=== PATIENT | male | born 1940 | race Caucasian/White ===

== ENCOUNTER 2017-06-03 15:00 | Outpatient (RCR) | payer MEDICARE, OTHER ==
[~2017-06-03 15:00] MED LIST: AMOX400T12 PO; FERR-57 PO; GLIM2TAB PO; HSCO125 SL; LEVO250T7 PO; LEVO500T69 PO; LOVA20TA2 PO; MAGN100T3 PO; MTF500T PO; OXYB15TA PO; OXYC-188 PO; SENN1TAB76 PO
== END 2017-06-03 16:29 | disposition home or self-care (01) ==
PROVIDERS: ATTEND Orthopaedic Surgery
DX: M75.101 Unspecified rotator cuff tear or rupture of right shoulder, not specified as traumatic (principal)

== ENCOUNTER 2019-06-18 18:22 | Emergency (ER) | payer MEDICARE ==
[~2019-06-18] VITALS: Ht 182 cm; Wt 72.0 kg
--- OUTSIDE RECORDS SUMMARY | 2019-06-18 18:28 | XMS REPORT ---
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 Unspecified Chronic Active no name no inf ormation sense organ hearing loss disorders (2 sources.) Past or Other Problems Problem Normalized Date of Normalized Normalized Provider Fac ility Classification Problem(s) Problem Problem Problem Sta tus Onset/Resoluti Duration on Syncope (2 Syncope and Episodic Completed no name no inform ation sources.) collapse NEGATED Unspecified Episodic Completed LUIS TWISS , Not Christina ilable no rotator cuff MD ([id number]) information tear or (14 sources.) rupture of right shoulder, not specified as traumatic Procedures No Information Immunizations No Information Results No Information Vital Signs No Information Interventions No Information Plan of Treatment No Information Goals No Information Social History No Information Functional Status No Information Mental Status No Information Encounters Encounter Normalized Encounter Encounter Diagnosis Care Provi saw Organization Date Type 06-03-2017 Patient encounter no information no name (no phone) no organization name - (no phone) 06-03-2017 06-01-2017 Patient encounter no information no name (no phone) no organization name (no phone) 05-27-2017 Patient encounter no information no name (no phone) no organization name (no phone) 05-25-2017 Patient encounter no information no name (no phone) no organization name (no phone) 05-19-2017 Patient encounter no information no name (no phone) no organization name (no phone) 05-17-2017 Patient encounter no information no name (no phone) no organization name (no phone) 05-12-2017 Patient encounter no information no name (no phone) no organization name (no phone) 05-10-2017 Patient encounter no information no name (no phone) no organization name (no phone) 05-06-2017 Patient encounter no information no name (no phone) no organization name (no phone) 05-03-2017 Patient encounter no information no name (no phone) no organization name (no phone) 04-30-2017 Patient encounter no information no name (no phone) no organization name (no phone) 07-02-2014 Patient encounter no information no name (no phone) no organization name (no phone) 04-17-2014 Patient encounter no information no name (no phone) no organization name (no phone) 07-18-2013 Patient encounter no information no name (no phone) no organization name (no phone) Medical Equipment No Information Payers No Information Additional Source Comments This clinical document has been generated using [employer] software that has been certified by the Office of the National Coordinator for Health Information Technology (ONC 15.99.04.3023.Diam.[id number]) and the National Committee for Associate Professor Of Musicology (NCQA, as an eMeasure certified technology). FOR RECORDS PERTAINING TO PATIENTS WHO ARE OR HAVE BEEN ENROLLED IN A CHEMICAL D EPENDENCY/SUBSTANCE ABUSE PROGRAM, SOME INFORMATION MAY BE OMITTED. This clinica l summary was aggregated from multiple sources. Caution should be exercised in using it in the provision of clinical care. This summary normalizes information from multiple sources, and as a consequence, information in this document may ma terially change the coding, format and clinical context of patient data. In jose juan tion, data may be omitted in some cases. CLINICAL DECISIONS SHOULD BE BASED ON T HE PRIMARY CLINICAL RECORDS. [employer] provides no warranty or guara ntee of the accuracy or completeness of information in this document.The followi ng information is based on time limited clinical information
--- OUTSIDE RECORDS SUMMARY | 2019-06-18 18:28 | XMS REPORT | Continuity of Care Document ---
Author Organization Unknown Address Unknown Phone Unavailable Allergies Active Description Code Type Severity Reaction Onset Reported/Identified Relationship to Patient Clinical Status Yes No Known Drug Allergies [id number] Drug Allergy Unknown N/A 09/09/2009 Medications There is no data. 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 Results There is no data. Encounters ACCT No. Visit Date/Time Discharge Status Pt. Type Provider Facility Loc./Unit Complaint [id number] 06/03/2017 15:00:00 018 16:29:00 DIS Outpatient LUIS LILLY MD [facility] REHAB R SHOULDER MASSIVE RCT [id number] 07/02/2014 14:06:00 015 23:59:59 CLS Outpatient STEVE MOON DO [facility] CARD EBSTEIN'S ANOMA LY [id number] 04/17/2014 15:59:00 015 23:59:59 CLS Outpatient ÁNGEL MARSH MD [facility] RAD LEFT ASSYMETRCAL HEARIN G LOSS [id number] 07/18/2013 08:38:00 014 23:59:59 CLS Outpatient STEVE MOON DO [facility] CARD SYNCOPE
--- OUTSIDE RECORDS SUMMARY | 2019-06-18 18:28 | XMS REPORT | Clinical Summary ---
Author Author [facility] Organization [facility] Address Unknown Phone Unavailable Care Team Providers Care Metal Gauge Maker Name Role Phone Dio Awan MD PCP Emely Jimenez MD Unavailable Unavailable Source Comments Some departments are not documenting in the electronic medical record. If you d o not see the information that you expected, contact Release of Information in [facility] Check-Cap Information Management department at [phone] for further assistan ce in locating additional records.[facility] Allergies No Known Allergies Medications End Date Status Medication Sig Dispensed Refills Start Date Active metformin (GLUCOPHAGE) Take 2 Tabs 0 500 mg tablet by mouth Twice Daily With Meals. Active MULTIVITAMINS W-MINERALS Take 1 Tab by 0 (MULTIVITAMIN & MINERAL mouth Daily. FORMULA PO) Active ERGOCALCIFEROL (VITAMIN D Take 1 Tab by 0 PO) mouth Daily. Active ASCORBIC ACID (VITAMIN C Take 1 Tab by 0 PO) mouth Daily. Active FLAXSEED OIL PO Take 1 Tab by 0 mouth Daily. Active CALCIUM CARBONATE/VITAMIN Take 1 Tab by 0 D2 (CALCIUM + VITAMIN D mouth Daily. PO) Active DOCUSATE CALCIUM (STOOL Take 1 Tab by 0 SOFTENER PO) mouth Daily. Active lovastatin,+, (MEVACOR) Take 20 mg by 0 20 mg tablet mouth At Bedtime Daily. Active Aspirin 81 mg Tab Take 1 Tab by 0 mouth Daily. 0 Can resume after heredia catheter is removed. Active oxycodone/acetaminophen Take 1-2 Tabs 30 Tab 0 (PERCOCET) 5/325 mg by mouth 0 tablet Every 4 Hours as needed for Pain. Avoid driving while taking this narcotic pain medication Active hyoscyamine (LEVSIN/SL) 1 Tab Every 4 30 Tab 2 0.125 mg tablet Hours as 0 needed for Cramps. bladder spasms Active Sharon-3 Fatty Acids (FISH Take 1 Cap by 0 OIL) Cap mouth. Can 0 resume previous schedule after heredia catheter is removed. Active senna/docusate Take 2 Tabs 30 Tab 0 (SENOKOT-S) 8.6/50 mg by mouth 0 tablet Daily. Active levofloxacin (LEVAQUIN) Take 1 Tab by 15 Tab 0 250 mg tablet mouth Daily. 0 Active polymyxin/bacitracin/danuta/ Apply to 1 Container 1 HC (CORTISPORIN) 1 % affected area 0 topical ointment Three Times Daily. Active oxybutynin XL (DITROPAN Take 1 Tab by 15 Tab 0 XL) 15 mg tablet mouth Daily. 0 Active Problems Problem Noted Date Anemia 09/10/2009 Hyperkalemia 09/03/2009 Prostate cancer 09/03/2009 Social History Date Tobacco Use Types Packs/Day Years Used Quit: 03/08/1961 Former Smoker Cigarettes 1 5 Drinks/Week oz/Week Comments Alcohol Use No Sex Assigned at Date Recorded Not on file Industry Job Start Date Occupation Not on file Not on file Not on file Travel End Travel History Travel Start No recent travel history available. Last Filed Vital Signs Reading Time Taken Comments Vital Sign 109/68 09/05/2009 1:49 PM CDT Blood Pressure 93 09/05/2009 1:49 PM CDT Pulse 36.2 C (97.2 F) 09/05/2009 1:49 PM CDT Temperature - - Respiratory Rate 96% 09/05/2009 1:49 PM CDT Oxygen Saturation - - Inhaled Oxygen Concentration 71.1 kg (156 lb 12 oz) 09/02/2009 11:15 AM CDT Weight 185.4 cm (6' 0.99") 09/02/2009 11:15 AM CDT Height 20.68 09/02/2009 11:15 AM CDT Body Mass Index Plan of Treatment Health Maintenance Due Date Last Done Comments DTAP/TDAP VACCINES (1 - 12/13/1950 Tdap) HEPATITIS C SCREENING 12/13/1957 PHYSICAL (COMPREHENSIVE) 12/13/1957 EXAM SHINGLES RECOMBINANT 12/13/1989 VACCINE (1 of 2) PNEUMONIA (PCV13/PPSV23) 12/13/2004 VACCINES (1 of 2 - PCV13) INFLUENZA VACCINE 10/07/2019 Results Not on filefrom Last 3 Months
--- NOTE | 2019-06-18 18:39 | ED General ---
General Stated Complaint: RECTAL PAIN/BILAT FOOT SWELLING Source of Information: Patient Exam Limitations: No Limitations History of Present Illness Date Seen by Provider: Jun 18, 2019 Time Seen by Provider: 18:37 Initial Comments To ER by private vehicle with reports of rectal pain for the past 3 or 4 days. States he has no external pain but pain seems to be within the rectum. When he sticks his finger up his rectum he can feel some tenderness and pain around the coccyx. He states that he did fall about a week ago landing on his buttocks while out in the garden but had no pain immediately. Unsure if this is related to his current symptoms. History of prostatectomy, no dysuria. No rectal bleeding that he has noticed. Also had some mild bilateral lower extremity swelling. Timing/Duration: 3-4 Days Severity: Moderate Associated Systoms: Denies Symptoms Allergies and Home Medications Allergies Coded Allergies: No Known Drug Allergies (Unverified , 09/09/09) Home Medications Glimepiride 2 Mg Tablet, 2 MG PO DAILY, (Reported) Lovastatin 20 Mg Tablet, 1 EACH PO DAILY WITH SUPPER, (Reported) Metformin Hcl 500 Mg Tablet, 1,000 MG PO BID WITH MEALS, (Reported) Patient Home Medication List Home Medication List Reviewed: Yes Review of Systems Review of Systems Constitutional: see HPI EENTM: see HPI Respiratory: no symptoms reported Cardiovascular: no symptoms reported Gastrointestinal: other (rectal pain) Genitourinary: no symptoms reported Musculoskeletal: no symptoms reported, other (and rectal pain) Skin: no symptoms reported Psychiatric/Neurological: No Symptoms Reported Hematologic/Lymphatic: No Symptoms Reported Past Qvigmbb-Cdohos-Biydst Hx Patient Social History Recent Foreign Travel: No Contact w/Someone Who Travel: No Past Medical History Reproductive Disorders: No Physical Exam Vital Signs Vital Signs - First Documented 06/18/19 18:48 Temp 36.4 Pulse 84 Resp 20 B/P (MAP) 171/86 (114) Pulse Ox 94 Capillary Refill : Height, Weight, BMI Height: '" Weight: lbs. oz. kg; BMI Method: General Appearance: No Apparent Distress, WD/WN Eyes: Bilateral Eye Normal Inspection, Bilateral Eye PERRL, Bilateral Eye EOMI Respiratory: No Accessory Muscle Use, No Respiratory Distress Cardiovascular: Regular Rate, Rhythm, Normal Peripheral Pulses Gastrointestinal: Non Tender, Soft Extremity: Normal Capillary Refill, Normal Inspection, Other (Trace pitting edema bilateral lower extremity) Neurologic/Psychiatric: Alert, Oriented x3 Skin: Normal Color, Warm/Dry Progress/Results/Core Measures Suspected Sepsis SIRS Temperature: Pulse: Respiratory Rate: Laboratory Tests 06/18/19 18:43: White Blood Count 8.5 Blood Pressure / Mean: Laboratory Tests 06/18/19 18:43: Creatinine 1.63H, Platelet Count 270, Total Bilirubin 0.4 Results/Orders Lab Results Laboratory Tests Test 06/18/19 18:43 06/18/19 20:20 Range/Units White Blood Count 8.5 4.3-11.0 10^3/uL Red Blood Count 4.91 4.35-5.85 10^6/uL Hemoglobin 14.1 13.3-17.7 G/DL Hematocrit 43 40-54 % Mean Corpuscular Volume 87 80-99 FL Mean Corpuscular Hemoglobin 29 25-34 PG Mean Corpuscular Hemoglobin Concent 33 32-36 G/DL Red Cell Distribution Width 15.0 H 10.0-14.5 % Platelet Count 270 130-400 10^3/uL Mean Platelet Volume 11.4 H 7.4-10.4 FL Neutrophils (%) (Auto) 67 42-75 % Lymphocytes (%) (Auto) 17 12-44 % Monocytes (%) (Auto) 12 0-12 % Eosinophils (%) (Auto) 4 0-10 % Basophils (%) (Auto) 1 0-10 % Neutrophils # (Auto) 5.6 1.8-7.8 X 10^3 Lymphocytes # (Auto) 1.5 1.0-4.0 X 10^3 Monocytes # (Auto) 1.0 0.0-1.0 X 10^3 Eosinophils # (Auto) 0.3 0.0-0.3 10^3/uL Basophils # (Auto) 0.1 0.0-0.1 10^3/uL Sodium Level 140 135-145 MMOL/L Potassium Level 4.4 3.6-5.0 MMOL/L Chloride Level 105 98-107 MMOL/L Carbon Dioxide Level 19 L 21-32 MMOL/L Anion Gap 16 H 5-14 MMOL/L Blood Urea Nitrogen 26 H 7-18 MG/DL Creatinine 1.63 H 0.60-1.30 MG/DL Estimat Glomerular Filtration Rate 41 BUN/Creatinine Ratio 16 Glucose Level 112 H 70-105 MG/DL Calcium Level 9.2 8.5-10.1 MG/DL Corrected Calcium 8.8 8.5-10.1 MG/DL Total Bilirubin 0.4 0.1-1.0 MG/DL Aspartate Amino Transf (AST/SGOT) 58 H 5-34 U/L Alanine Aminotransferase (ALT/SGPT) 19 0-55 U/L Alkaline Phosphatase 480 H 40-136 U/L Total Protein 7.7 6.4-8.2 GM/DL Albumin 4.5 3.2-4.5 GM/DL Urine Color YELLOW Urine Clarity CLEAR Urine pH 5.5 5-9 Urine Specific [place] 1.025 H 1.016-1.022 Urine Protein 1+ H NEGATIVE Urine Glucose (UA) 3+ H NEGATIVE Urine Ketones NEGATIVE NEGATIVE Urine Nitrite NEGATIVE NEGATIVE Urine Bilirubin NEGATIVE NEGATIVE Urine Urobilinogen 0.2 < = 1.0 MG/DL Urine Leukocyte Esterase NEGATIVE NEGATIVE Urine RBC (Auto) TRACE-L NEGATIVE Urine RBC RARE /HPF Urine WBC NONE /HPF Urine Squamous Epithelial Cells RARE /HPF Urine Crystals NONE /LPF Urine Bacteria NEGATIVE /HPF Urine Casts PRESENT /LPF Urine Granular Casts RARE /LPF Urine Mucus SMALL H /LPF Urine Culture Indicated NO My Orders Orders - REJI LYNN APRN Ct Abdomen/Pelvis Wo (06/18/19 18:35) Cbc With Automated Diff (06/18/19 18:35) Comprehensive Metabolic Panel (06/18/19 18:35) Ua Culture If Indicated (06/18/19 18:35) Tramadol Tablet (Ultram Tablet) (06/18/19 20:15) Medications Given in ED Current Medications Medications Dose Ordered Sig/Yecenia Route Start Time Stop Time Status Last Admin Dose Admin Tramadol HCl 50 mg ONCE ONCE PO 06/18/19 20:15 06/18/19 20:16 DC 06/18/19 20:18 50 MG Vital Signs/I&O 06/18/19 18:48 Temp 36.4 Pulse 84 Resp 20 B/P (MAP) 171/86 (114) Pulse Ox 94 Capillary Refill : Departure Communication (Admissions) NAME: KATIA HODGE [facility] REC#: [id number] PT STATUS: REG ER : 1940 PHYSICIAN: REJI LYNN [employer] ADMIT DATE: 06/18/19/ER Draft Date of Exam:06/18/19 CT ABDOMEN/PELVIS WO CLINICAL INDICATION: Patient complains of rectal pain/spasms yesterday. Patient complains of swelling in both lower extremities. Patient reports falling at home on backwards onto his buttocks. EXAM: Axial CT scan of the abdomen and pelvis performed without IV or enteric contrast. Sagittal and coronal reformatted images were created. Auto Exposure Controls were utilized during the CT exam to meet ALARA standards for radiation dose reduction. COMPARISON: CT scan of the abdomen and pelvis performed without and with IV contrast dated 06/26/2009. FINDINGS: There is minimal bibasilar atelectasis or scarring with small parenchymal bands seen. There is no acute lumbar spine fracture. 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 There is multilevel lumbar spinal degenerative disease. There is no fracture of the sacrum, hips or pelvis. There is interval development of sclerotic lesions involving the T12, L3 vertebra, posterior right iliac crest, anterior right iliac bone/acetabular region. Superior right pubic ramus/symphysis pubis region. S3/S4 sacral region and small patchy areas involving the left proximal femoral intertrochanteric region. Given the multiplicity of these findings, metastatic disease is of concern. There is levoscoliosis of the lumbar spine. There are two indeterminate low-density areas involving the left lobe of the liver near the dome. The largest measures 7 mm. These were not visualized on the prior study. Liver is otherwise unremarkable. The spleen, pancreas and adrenal glands are grossly unremarkable, as visualized. There is mild fat stranding again seen adjacent to both kidneys with no interval acute abnormality. There is no hydronephrosis or renal stone seen. The bladder is partially fluid-filled with diffuse bladder wall thickening which may be related to incomplete distention. There is no intra-abdominal free air or free fluid. There is distention of the stomach with ingested debris noted. There is no intestinal obstruction. There is a moderate amount of stool within the rectal vault which is air distended. There is moderate amount of stool within the transverse colon and descending colon. The appendix is unremarkable, as visualized. There is interval development of a 1.3 cm x 1.6 cm x 2.7 cm (AP x Trans x CC) lymph node in the left para-aortic region near the splenic hilum. This was not seen on the prior study. There is no other significant lymphadenopathy seen. The prostate gland is surgically resected. The extra-abdominal and extra-pelvic soft tissue structures show no significant abnormality. There is no significant change in the mildly prominent left groin lymph nodes. IMPRESSION: 1: There is a moderate amount of stool within the transverse and descending colon. There is no evidence of intestinal obstruction. 2: There is debris in distended stomach from ingested material. 3: There is interval development of sclerotic lesions involving the axial skeleton. Osseous metastatic disease may be considered. Clinical correlation is suggested for further evaluation. Prostate gland is surgically resected. Nonemergent nuclear medicine whole body bone scan would help better evaluate. 4: There is no evidence of acute fracture seen on this exam. 5: There is interval development of a prominent lymph node in the upper left periaortic region of the left renal hilum. 6: There are two nonspecific circumscribed subcentimeter lesions in the left lobe of the liver. Cyst may be considered. If the patient has history of cancer, then metastatic lesions cannot be completely excluded. Nonemergent CT scan of the abdomen and pelvis with contrast would help better evaluate. Dictated on workstation # [id number] Dict: 06/18/191930 Trans: 06/18/191952 [facility] [id number] Interpreted by: ABIMAEL LOW MD Electronically signed by: Impression Primary Impression: Perineal pain in male Additional Impression: sclerotic bony lesions Disposition: 01 HOME, SELF-CARE Condition: Stable Departure-Patient Inst. Decision time for Depature: 19:59 Referrals: STEVE AWAN DO (PCP/Family) Primary Care Physician Patient Instructions: Acute Pelvic Pain (DC) Add. Discharge Instructions: 1. Suspect that hyour pain is from the fall a few days ago and some bruising to the coccyx or tailbone. 2. Follow-up with Dr. Awan this week. Call tomorrow to make an appointment. There are some lesions on some of the bones, specifically on the T12, L3 vertebrae, left proximal femur and a few others. These can represent a metastatic cancer, perhaps from your history of prostate cancer. . Copy Copies To 1: STEVE AWAN PETER J APRN Jun 18, 2019 18:39
[2019-06-18 18:56] LABS: BASOPHILS # (AUTO) 0.1 10^3/uL (0.0-0.1); BASOPHILS % (AUTO) 1 % (0-10); EOSINOPHILS # (AUTO) 0.3 10^3/uL (0.0-0.3); EOSINOPHILS % (AUTO) 4 % (0-10); HEMATOCRIT 43 % (40-54); HEMOGLOBIN 14.1 G/DL (13.3-17.7); LYMPHOCYTES # (AUTO) 1.5 X 10^3 (1.0-4.0); LYMPHOCYTES % (AUTO) 17 % (12-44); MEAN CORPUSCULAR HEMOGLOBIN 29 PG (25-34); MEAN CORPUSCULAR HGB CONC 33 G/DL (32-36); MEAN CORPUSCULAR VOLUME 87 FL (80-99); MEAN PLATELET VOLUME 11.4 FL (7.4-10.4); MONOCYTES % (AUTO) 12 % (0-12); NEUTROPHILS # (AUTO) 5.6 X 10^3 (1.8-7.8); NEUTROPHILS % (AUTO) 67 % (42-75); PLATELET COUNT 270 10^3/uL (130-400); WHITE BLOOD COUNT 8.5 10^3/uL (4.3-11.0)
[2019-06-18 19:04] LABS: ALBUMIN 4.5 GM/DL (3.2-4.5); POTASSIUM 4.4 MMOL/L (3.6-5.0)
[2019-06-18 19:05] LABS: CALCIUM 9.2 MG/DL (8.5-10.1)
[2019-06-18 19:06] LABS: TOTAL PROTEIN 7.7 GM/DL (6.4-8.2)
[2019-06-18 19:08] LABS: BILIRUBIN,TOTAL 0.4 MG/DL (0.1-1.0)
[2019-06-18 19:10] LABS: CREATININE SERUM 1.63 MG/DL (0.60-1.30)
--- NOTE | 2019-06-18 19:54 | Diagnostic Imaging Report ---
CLINICAL INDICATION: Patient complains of rectal pain/spasms yesterday. Patient complains of swelling in both lower extremities. Patient reports falling at home on backwards onto his buttocks. EXAM: Axial CT scan of the abdomen and pelvis performed without IV or enteric contrast. Sagittal and coronal reformatted images were created. Auto Exposure Controls were utilized during the CT exam to meet ALARA standards for radiation dose reduction. COMPARISON: CT scan of the abdomen and pelvis performed without and with IV contrast dated 06/26/2009. FINDINGS: There is minimal bibasilar atelectasis or scarring with small parenchymal bands seen. There is no acute lumbar spine fracture. 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 There is multilevel lumbar spinal degenerative disease. There is no fracture of the sacrum, hips or pelvis. There is interval development of sclerotic lesions involving the T12 vertebra, L3 vertebra, posterior right iliac crest, anterior right iliac bone/acetabular region, superior right pubic ramus/symphysis pubis region, S3/S4 sacral region and small patchy areas involving the left proximal femoral intertrochanteric region. Given the multiplicity of these findings, metastatic disease is of concern. There is levoscoliosis of the lumbar spine. There are two indeterminate low-density areas involving the left lobe of the liver near the dome. The largest measures 7 mm. These were not visualized on the prior study. Liver is otherwise unremarkable. The spleen, pancreas and adrenal glands are grossly unremarkable, as visualized. There is mild fat stranding again seen adjacent to both kidneys with no interval acute abnormality. There is no hydronephrosis or renal stone seen. The bladder is partially fluid-filled with diffuse bladder wall thickening which may be related to incomplete distention. There is no intra-abdominal free air or free fluid. There is distention of the stomach with ingested debris noted. There is no intestinal obstruction. There is a moderate amount of stool within the rectal vault which is air distended. There is moderate amount of stool within the transverse colon and descending colon. The appendix is unremarkable, as visualized. There is interval development of a 1.3 cm x 1.6 cm x 2.7 cm (AP x Trans x CC) lymph node in the left para-aortic region near the splenic hilum. This was not seen on the prior study. There is no other significant lymphadenopathy seen. The prostate gland is surgically resected. The extra-abdominal and extra-pelvic soft tissue structures show no significant abnormality. There is no significant change in the mildly prominent left groin lymph nodes. IMPRESSION: 1: There is a moderate amount of stool within the transverse and descending colon. There is no evidence of intestinal obstruction. 2: There is debris in distended stomach from ingested material. 3: There is interval development of sclerotic lesions involving the axial and appendicular skeleton. Osseous metastatic disease is of concern. Prostate gland is surgically resected. Nonemergent nuclear medicine whole body bone scan would help better evaluate. 4: There is no evidence of acute fracture seen on this exam. 5: There is interval development of a prominent lymph node in the upper left periaortic region of the left renal hilum. 6: There are two nonspecific circumscribed subcentimeter lesions in the left lobe of the liver. Cyst may be considered. If the patient has history of cancer, then metastatic lesions cannot be completely excluded. Nonemergent CT scan of the abdomen and pelvis with contrast would help better evaluate. Dictated by: Dictated on workstation # [id number]
[2019-06-18 20:25] LABS: BILIRUBIN,URINE NEGATIVE (NEGATIVE); CLARITY,URINE CLEAR; COLOR,URINE YELLOW; GLUCOSE, URINE (UA) 3+ (NEGATIVE); KETONES,URINE NEGATIVE (NEGATIVE); LEUKOCYTE ESTERASE ,URINE NEGATIVE (NEGATIVE); NITRITE,URINE NEGATIVE (NEGATIVE); PH,URINE 5.5 (5-9); PROTEIN,URINE 1+ (NEGATIVE)
[2019-06-18 20:34] LABS: RBC,URINE RARE /HPF
[2019-06-18 20:35] LABS: BACTERIA,URINE NEGATIVE /HPF; GRANULAR CASTS,URINE RARE /LPF; SQUAMOUS EPITHELIAL CELL,UR RARE /HPF
[2019-06-18] MEDS ORDERED: RX-TRAMADOL 50 MG (ULTRAM) TAB PPK#4 PO STA (20:54)
[2019-06-18 20:57] VITALS: BP 156/82
== END 2019-06-18 20:59 | disposition home or self-care (01) ==
LOC: EDUNIT# 18:22 → ER 18:24
DX: R10.2 Pelvic and perineal pain (principal); M89.8X9 Other specified disorders of bone, unspecified site; Z79.84 Long term (current) use of oral hypoglycemic drugs
CPT/HCPCS: 36415; 74176; 80053; 81000; 85025

== ENCOUNTER 2019-06-20 18:33 | Emergency (ER) | payer MEDICARE ==
--- OUTSIDE RECORDS SUMMARY | 2019-06-20 18:38 | XMS REPORT | Clinical Summary ---
Author Author [facility] Organization [facility] Address Unknown Phone Unavailable Care Team Providers Care Soccer Ball Assembler Name Role Phone Dio Awan MD PCP Emely Jimenez MD Unavailable Unavailable Source Comments Some departments are not documenting in the electronic medical record. If you d o not see the information that you expected, contact Release of Information in [facility] Management department at [phone] for further assistan ce in locating additional records.[facility] Allergies No Known Allergies Medications End Date [...] 0 needed for Cramps. bladder spasms Active [place]-3 Fatty Acids (FISH Take 1 Cap by [...]
--- OUTSIDE RECORDS SUMMARY | 2019-06-20 18:39 | XMS REPORT ---
Author Author [facility] Address [address] [address] Care Team Providers Care Finance Director Name Role Phone Unavailable Unavailable Allergies No [...] Not Christina ilable no rotator cuff MD ([id number]) information tear or (14 sources.) rupture of [...] This clinical document has been generated using [employer] software that has been certified by the Office of the National Coordinator for Health Information Technology (ONC 15.99.04.3023.[id number]) and the National Committee for Exercise Planner (NCQA, as an eMeasure certified technology). FOR [...] BASED ON T HE PRIMARY CLINICAL RECORDS. [employer]. provides no warranty or guara ntee of the accuracy or completeness of information in this document.The followi ng information is based on time limited clinical information
--- OUTSIDE RECORDS SUMMARY | 2019-06-20 18:39 | XMS REPORT | Continuity of Care Document ---
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 Results Test Result Range Complete blood count (CBC) with automate d white blood cell (WBC) differential - 06/18/19 18:43 Blood leukocytes automated count (number/volume) 8.5 10*3/uL 4.3-11.0 Blood erythrocytes automated count (number/volume) 4.91 10*6/uL 4.35-5.85 Venous blood hemoglobin measurement (mass/volume) 14.1 g/dL 13.3-17.7 Blood hematocrit (volume fraction) 43 % 40-54 Automated erythrocyte mean corpuscular volume 87 [ foz_us] 80-99 Automated erythrocyte mean corpuscular h emoglobin (mass per erythrocyte) 29 pg 25-34 Automated erythrocyte mean corpuscular h emoglobin concentration measurement (mass/volume) 33 g/dL 32-36 Automated erythrocyte distribution width ratio 15. 0 % 10.0- 14.5 Automated blood platelet count (count/volume) 270 10*3/uL 130-400 Automated blood platelet mean volume measurement 11.4 [foz_us] 7.4-10.4 Automated blood neutrophils/100 leukocytes 67 % 42-75 Automated blood lymphocytes/100 leukocytes 17 % 12-44 Blood monocytes/100 leukocytes 12 % 0-12 Automated blood eosinophils/100 leukocytes 4 % 0-10 Automated blood basophils/100 leukocytes 1 % 0-10 Blood neutrophils automated count (number/volume) 5.6 10*3 1.8-7.8 Blood lymphocytes automated count (number/volume) 1.5 10*3 1.0-4.0 Blood monocytes automated count (number/volume) 1. 0 10*3 0.0-1.0 Automated eosinophil count 0.3 10*3/uL 0 .0-0.3 Automated blood basophil count (count/volume) 0.1 10*3/uL 0.0-0.1 Comprehensive metabolic panel - 06/18/19 18:43 Serum or plasma sodium measurement (moles/volume) 140 mmol/L 135-145 Serum or plasma potassium measurement (moles/volume) 4.4 mmol/L 3.6-5.0 Serum or plasma chloride measurement (moles/volume) 105 mmol/L 98-107 Carbon dioxide 19 mmol/L 21-32 Serum or plasma anion gap determination (moles/volume) 16 mmol/L 5-14 Serum or plasma urea nitrogen measurement (mass/volume ) 26 mg/dL 7-18 Serum or plasma creatinine measurement (mass/volume) 1.63 mg/dL 0.60-1.30 Serum or plasma urea nitrogen/creatinine mass ratio 16 NRG Serum or plasma creatinine measurement w ith calculation of estimated glomerular filtration rate 41 NRG Serum or plasma glucose measurement (mass/volume) 112 mg/dL 70-105 Serum or plasma calcium measurement (mass/volume) 9.2 mg/dL 8.5-10.1 Serum or plasma total bilirubin measurement (mass/volu me) 0.4 mg/dL 0.1-1.0 Serum or plasma alkaline phosphatase se surement (enzymatic activity/volume) 480 U/L 40-136 Serum or plasma aspartate aminotransfera se measurement (enzymatic activity/volume) 58 U/L 5-34 Serum or plasma alanine aminotransferase measurement (enzymatic activity/volume) 19 U/L 0-55 Serum or plasma protein measurement (mass/volume) 7.7 g/dL 6.4-8.2 Serum or plasma albumin measurement (mass/volume) 4.5 g/dL 3.2-4.5 CALCIUM CORRECTED 8.8 mg/dL 8.5-10.1 Complete urinalysis with reflex to cultu re - 06/18/19 20:20 Urine color determination YELLOW NRG Urine clarity determination CLEAR NR G Urine pH measurement by test strip 5.5 5-9 Specific gravity of urine by test strip 1.025 1.016-1.022 Urine protein assay by test strip, semi-quantitative 1+ NEGATIVE Urine glucose detection by automated test strip 3+ NEGATIVE Erythrocytes detection in urine sediment by light micr oscopy TRACE-L NEGATIVE Urine ketones detection by automated test strip NE GATIVE NEGATIVE Urine nitrite detection by test strip NEGATIVE NEGATIVE Urine total bilirubin detection by test strip NEGA TIVE NEGATIVE Urine urobilinogen measurement by automated test strip (mass/volume) 0.2 mg/dL < = 1.0 Urine leukocyte esterase detection by dipstick NEG ATIVE NEGATIVE Automated urine sediment erythrocyte cou nt by microscopy (number/high power field) RARE NRG Automated urine sediment leukocyte count by microscopy (number/high power field) NONE NRG Bacteria detection in urine sediment by light microsco py NEGATIVE NRG Squamous epithelial cells detection in u rine sediment by light microscopy RARE NRG Crystals detection in urine sediment by light microsco py NONE NRG Casts detection in urine sediment by light microscopy PRESENT NRG Mucus detection in urine sediment by light microscopy SMALL NRG Complete urinalysis with reflex to culture NO NRG Granular casts detection in urine sediment by light mi croscopy RARE NRG Encounters ACCT No. Visit Date/Time Discharge Status Pt. Type Provider Facility Loc./Unit Complaint [id number] 06/18/2019 18:24:00 020 20:59:00 DIS Emergency REJI LYNN PESTICIDE CHEMIST [facility] ER RECTAL PAIN/BILAT FOOT SWELLING [id number] 06/03/2017 15:00:00 018 16:29:00 DIS Outpatient LUIS LILLY MD [facility] REHAB R SHOULDER MASSIVE RCT [id number] 07/02/2014 14:06:00 015 23:59:59 CLS Outpatient STEVE MOON DO [facility] CARD EBSTEIN'S ANOMA LY [id number] 04/17/2014 15:59:00 015 23:59:59 CLS Outpatient ÁNGEL MARSH MD [facility] RAD LEFT ASSYMETRCAL HEARIN G LOSS [id number] 07/18/2013 08:38:00 014 23:59:59 CLS Outpatient STEVE MOON DO [facility] CARD SYNCOPE [id number] 06/22/2019 11:00:00 P EN Preadmit STEVE MOON DO [facility] CARD CANCER METASTATIC TO BONE
--- NOTE | 2019-06-20 18:57 | ED General ---
General Stated Complaint: L BACK PAIN, UNABLE TO URINATE Source of Information: Patient Exam Limitations: No Limitations History of Present Illness Date Seen by Provider: Jun 20, 2019 Time Seen by Provider: 18:55 Initial Comments To ER with reports of worsening midline low back pain and difficulty urinating. He feels the urge to urinate but only has a small dribbling stream with some hesitancy. He was seen here a few days ago for perineal pain, this began after he fell in the garden and that it was related to a bruised coccyx. We did a CT and didn't find evidence of sclerotic bony lesions. They called primary care who has set up a bone scan for this . He is out of his pain medication and the pain has returned today he states that the Ultram was helpful. Timing/Duration: 1-2 Days Severity: Moderate Allergies and Home Medications Allergies Coded Allergies: No Known Drug Allergies (Unverified , 09/09/09) Home Medications Glimepiride 2 Mg Tablet, 2 MG PO DAILY, (Reported) Lovastatin 20 Mg Tablet, 1 EACH PO DAILY WITH SUPPER, (Reported) Metformin Hcl 500 Mg Tablet, 1,000 MG PO BID WITH MEALS, (Reported) Sulfamethoxazole/Trimethoprim 1 Each Tablet, 1 EACH PO BID Prescribed by: REJI LYNN on 06/20/192030 Tramadol HCl 50 Mg Tablet, 50 MG PO Q6H Prescribed by: REJI LYNN on 06/20/192030 Patient Home Medication List Home Medication List Reviewed: Yes Review of Systems Review of Systems Constitutional: see HPI EENTM: see HPI Respiratory: no symptoms reported Cardiovascular: no symptoms reported Genitourinary: see HPI Musculoskeletal: no symptoms reported Skin: no symptoms reported Psychiatric/Neurological: No Symptoms Reported Hematologic/Lymphatic: No Symptoms Reported Past Dgsxdiv-Jsmzut-Oololq Hx Patient Social History Former Smoker, Quit: Jun 24, 1971 Recent Foreign Travel: No Contact w/Someone Who Travel: No Past Medical History Surgeries: Yes (HERNIA REPAIR, SHOULDER REPAIR) Prostatectomy Respiratory: No Cardiac: Yes High Cholesterol, Hypertension Neurological: Yes Neuropathy Reproductive Disorders: No Sexually Transmitted Disease: No Genitourinary: Yes Gastrointestinal: No Endocrine: Yes Diabetes, Non-Insulin dep Psychosocial: No Blood Disorders: No Physical Exam Vital Signs Capillary Refill : Height, Weight, BMI Height: '" Weight: lbs. oz. kg; 21.00 BMI Method: General Appearance: No Apparent Distress, WD/WN, Thin (very pleasant gentleman) Eyes: Bilateral Eye Normal Inspection, Bilateral Eye PERRL, Bilateral Eye EOMI Neck: Full Range of Motion, Normal Inspection Respiratory: No Accessory Muscle Use Cardiovascular: Regular Rate, Rhythm, Normal Peripheral Pulses Gastrointestinal: Non Tender, Soft Extremity: Normal Capillary Refill, Normal Inspection Neurologic/Psychiatric: Alert, Oriented x3 Skin: Normal Color, Warm/Dry Progress/Results/Core Measures Suspected Sepsis SIRS Temperature: Pulse: Respiratory Rate: Blood Pressure / Mean: Results/Orders Lab Results Laboratory Tests Test 06/20/19 19:30 Range/Units Urine Color YELLOW Urine Clarity CLEAR Urine pH 5.0 5-9 Urine Specific [place] 1.020 1.016-1.022 Urine Protein TRACE H NEGATIVE Urine Glucose (UA) 3+ H NEGATIVE Urine Ketones NEGATIVE NEGATIVE Urine Nitrite NEGATIVE NEGATIVE Urine Bilirubin NEGATIVE NEGATIVE Urine Urobilinogen 0.2 < = 1.0 MG/DL Urine Leukocyte Esterase NEGATIVE NEGATIVE Urine RBC (Auto) TRACE-I NEGATIVE Urine RBC 0-2 /HPF Urine WBC NONE /HPF Urine Crystals PRESENT H /LPF Urine Amorphous Sediment FEW SUNNY URATES H /LPF Urine Bacteria TRACE /HPF Urine Casts NONE /LPF Urine Mucus NEGATIVE /LPF Urine Culture Indicated NO My Orders Orders - REJI LYNN APRN Tramadol Tablet (Ultram Tablet) (06/20/19 19:00) Bladder Scan (06/20/19 18:53) Ua Culture If Indicated (06/20/19 18:53) Bladder Scan (06/20/19 19:03) Urine Culture (06/20/19 20:19) Rx-Tramadol Hcl (Rx-Ultram) (06/20/19 20:25) Medications Given in ED Current Medications Medications Dose Ordered Sig/Yecenia Route Start Time Stop Time Status Last Admin Dose Admin Tramadol HCl 50 mg ONCE ONCE PO 06/20/19 19:00 06/20/19 19:01 DC 06/20/19 19:25 50 MG Vital Signs/I&O Capillary Refill : Departure Impression Primary Impression: Urinary hesitancy Additional Impression: slcerotic bony lesions Disposition: HOME, SELF-CARE Condition: Stable Departure-Patient Inst. Decision time for Depature: 20:26 Referrals: STEVE MOON DO (PCP/Family) Primary Care Physician CARLOTA GEE MD Patient Instructions: NO INSTRUCTIONS GIVEN Add. Discharge Instructions: 1. Call Dr Spencer office tomorrow for an appiontment to be seen this week. Pain medication as directed. Return to Er for any concerns.Keep the appointment for the bone scan this . Your urine doesnt appear to be infected, but we're going to culture it. We're also going to use bactrim antibiotics until that culture comes back in a few days. Scripts Phenazopyridine HCl (Pyridium) 100 Mg Tablet 100 MG PO TID, #9 TAB Prov: REJI LYNN APRN 06/20/19 Sulfamethoxazole/Trimethoprim (Bactrim Ds Tablet) 1 Each Tablet 1 EACH PO BID, #14 TAB Prov: REJI LYNN APRN 06/20/19 Tramadol HCl (Ultram) 50 Mg Tablet 50 MG PO Q6H, #20 TAB Prov: REJI LYNN APRN 06/20/19 Copy Copies To 1: CARLOTA GEE MD, PETER J APRN Jun 20, 2019 18:57
[2019-06-20 19:40] LABS: BILIRUBIN,URINE NEGATIVE (NEGATIVE); CLARITY,URINE CLEAR; COLOR,URINE YELLOW; GLUCOSE, URINE (UA) 3+ (NEGATIVE); KETONES,URINE NEGATIVE (NEGATIVE); LEUKOCYTE ESTERASE ,URINE NEGATIVE (NEGATIVE); NITRITE,URINE NEGATIVE (NEGATIVE); PROTEIN,URINE TRACE (NEGATIVE)
[2019-06-20 20:04] LABS: AMORPHOUS SEDIMENT,UR FEW AMOR URATES /LPF; BACTERIA,URINE TRACE /HPF; RBC,URINE 0-2 /HPF
[2019-06-20 20:20] VITALS: BP 115/76
[2019-06-20] MEDS ORDERED: RX-TRAMADOL 50 MG (ULTRAM) TAB PPK#4 PO ONE (20:25)
[2019-06-20] MEDS ORDERED: TRAM-42 PO (20:30)
[2019-06-20] MEDS ORDERED: SULF1TAB35 PO (20:31)
[2019-06-20] MEDS ORDERED: PHEN-639 PO (20:34)
== END 2019-06-20 20:40 | disposition home or self-care (01) ==
LOC: EDUNIT# 18:33 → ER 18:34
DX: R39.11 Hesitancy of micturition (principal); M89.8X9 Other specified disorders of bone, unspecified site; I10 Essential (primary) hypertension; E78.00 Pure hypercholesterolemia, unspecified; E11.40 Type 2 diabetes mellitus with diabetic neuropathy, unspecified; Z79.84 Long term (current) use of oral hypoglycemic drugs
CPT/HCPCS: 81000; 99283

== ENCOUNTER → 2019-06-22 | Outpatient (CLI) | payer MEDICARE ==
[~2019-06-22] MED LIST changes: +PHEN-639 PO; +SULF1TAB35 PO; +TRAM-42 PO
--- NOTE | 2019-06-22 14:19 | Diagnostic Imaging Report ---
INDICATION: Prostate carcinoma. Patient was administered 26.9 mCi technetium 99m MDP intravenously and whole-body imaging was performed after 3 hour delay. Correlation is made with prior whole body bone scan from 06/26/2009. Uptake of activity by the axial and appendicular skeleton is noted. There is uptake by the kidneys with excretion into the urinary bladder. Patient has developed numerous foci of abnormal tracer accumulation. There is abnormal foci identified in the lower cervical spine as well as the thoracic and lumbar spine. There are numerous abnormal foci in the bony pelvis, particularly in the region of the right iliac bone. There are several small foci identified in the proximal femora bilaterally, greatest on the left. Findings are consistent with development of osseous metastatic disease. These were not present on prior exam. There is probable degenerative changes in the left foot and bilateral shoulders. IMPRESSION: Development of numerous foci of abnormal tracer accumulation consistent with development of osseous metastatic disease. Dictated by: Dictated on workstation # [id number]
== END ==
LOC: CARD 10:28
PROVIDERS: ATTEND Internal Medicine
DX: C61 Malignant neoplasm of prostate (principal); C79.51 Secondary malignant neoplasm of bone
CPT/HCPCS: 78306

== ENCOUNTER 2019-06-29 07:32 | Day surgery (SDC) | payer MEDICARE ==
[2019-06-29] VITALS (13 sets, daily range): BP systolic 92–127; BP diastolic 69–89
[2019-06-29] MEDS ORDERED: NS IV 1000 ML 1,000 ML IV STA (07:59)
[2019-06-29] MEDS ORDERED: MIDAZOLAM 2 MG/2 ML (VERSED) VIAL IVP ONE (08:00)
[2019-06-29] MEDS ORDERED: LIDOCAINE 1% INJ 20 ML 20 ML VIAL INJ ONE (08:00)
[2019-06-29] MEDS ORDERED: fentaNYL INJECTION 100 MCG/2 ML AMP IVP ONE (08:00)
[2019-06-29 08:07] LABS: ABSOLUTE RETIC # 24 10e9/L (24-90); BASOPHILS # (AUTO) 0.1 10^3/uL (0.0-0.1); BASOPHILS % (AUTO) 1 % (0-10); EOSINOPHILS % (AUTO) 0 % (0-10); HEMATOCRIT 41 % (40-54); HEMOGLOBIN 13.6 G/DL (13.3-17.7); LYMPHOCYTES # (AUTO) 2.1 X 10^3 (1.0-4.0); LYMPHOCYTES % (AUTO) 26 % (12-44); MEAN CORPUSCULAR HEMOGLOBIN 28 PG (25-34); MEAN CORPUSCULAR HGB CONC 33 G/DL (32-36); MEAN CORPUSCULAR VOLUME 85 FL (80-99); MEAN PLATELET VOLUME 10.1 FL (7.4-10.4); MONOCYTES # (AUTO) 0.9 X 10^3 (0.0-1.0); MONOCYTES % (AUTO) 12 % (0-12); NEUTROPHILS # (AUTO) 4.9 X 10^3 (1.8-7.8); NEUTROPHILS % (AUTO) 61 % (42-75); PLATELET COUNT 333 10^3/uL (130-400); RED CELL DISTRIBUTION WIDTH 14.7 % (10.0-14.5); RETICULOCYTE % 0.49 % (0.50-2.40); WHITE BLOOD COUNT 8.1 10^3/uL (4.3-11.0)
[2019-06-29 08:20] LABS: PROTHROMBIN TIME PATIENT 13.1 SEC (12.2-14.7)
[2019-06-29 08:35] LABS: LYMPHOCYTES % (MANUAL) 32 %; MONOCYTES % (MANUAL) 10 %; NEUTROPHILS % (MANUAL) 58 %; RBC MORPH NORMAL
[2019-06-29] MEDS ORDERED: LISI10TA2 PO (08:36)
[2019-06-29] MEDS ORDERED: CANA100T PO (08:36)
[2019-06-29] MEDS ORDERED: fentaNYL INJECTION 100 MCG/2 ML AMP ONE (08:47)
[2019-06-29] MEDS ORDERED: LIDOCAINE 1% INJ 20 ML 20 ML VIAL ONE (08:47)
[2019-06-29] MEDS ORDERED: MIDAZOLAM 2 MG/2 ML (VERSED) VIAL ONE (08:47)
[2019-06-29] MEDS ORDERED: NS IV 1000 ML 1,000 ML ONE (08:47)
[2019-06-29] MEDS ORDERED: HYDROcodone/APAP 5 MG/325 MG (LORTAB) TAB PO PRN (10:00)
--- NOTE | 2019-06-29 10:14 | Pre-Op Note & Conscious Sedat ---
Pre-Operative Progress Note H&P Reviewed The H&P was reviewed, patient examined and no changes noted. Date H&P Reviewed: Jun 29, 2019 Time H&P Reviewed: 09:00 Pre-Op Diagnosis: prostate cancer Conscious Sedation Pre-Proced Time 09:00 ASA Score 2 For ASA 3 and 4: Consider anesthesia and medical clearance. Also, for patients with a history of failed moderate sedation consider anesthesia. Airway Lungs Heart ASA score ASA 1: a normal healthy patient ASA 2: a patient with a mild systemic disease (mid diabetes, controlled hypertension, obesity ASA 3: a patient with a severe systemic disease that limits activity (angina, COPD, prior Myocardial infarction) ASA 4: a patient with an incapacitating disease that is a constant threat to life (CHF, renal failure) ASA 5: a moribund patient not expected to survive 24 hrs. (ruptured aneurysm) ASA 6: a declared brain- patient whose organs are being harvested. For emergent operations, add the letter E after the classification Mallampati Classification Grade 2 Sedation Plan Analgesia, Amnesia, Plan communicated to team members, Discussed options with patient/fam, Discussed risks with patient/fam The patient is an appropriate candidate to undergo the planned procedure, sedation, and anesthesia. The patient immediately re-assessed prior to indication. KG DALTON MD Jun 29, 2019 10:14
--- NOTE | 2019-06-29 10:59 | Diagnostic Imaging Report ---
INDICATION: PROSTATE CA TECHNIQUE: All CT scans use one or more of the following dose optimizing techniques: automated exposure control, MA and/or KvP adjustment based on a patient size and exam type, or iterative reconstruction. Patient brought to the CT suite and placed on table in prone position. Axial imaging through the pelvis was performed to evaluate appropriate entry site. The low back prepped and draped in usual sterile fashion. Study was performed utilizing conscious sedation with radiology nursing and constant patient monitoring. Patient was administered a total of 50 mcg of Fentanyl intravenously and 1 mg of Versed intravenously. Total procedure time is 6 minutes. Bone marrow biopsy needle was advanced and placed with its tip along the posterior cortex of the right iliac bone. The needle was advanced through the cortex utilizing a bone marrow drill. Core sample was then obtained. The needle was withdrawn and hemostasis was obtained using manual compression. Patient tolerated the procedure well and left department in stable condition. IMPRESSION: CT-guided bone biopsy of right iliac osteoblastic lesion, utilizing conscious sedation. Pathology results are currently pending. Dictated by: Dictated on workstation # [id number]
== END 2019-06-29 12:05 | disposition home or self-care (01) ==
LOC: RAD 07:32 → SDC 09:55 → RAD 12:05
PROVIDERS: ATTEND Internal Medicine Hematology & Oncology
DX: C61 Malignant neoplasm of prostate (principal); M89.8X8 Other specified disorders of bone, other site; E11.9 Type 2 diabetes mellitus without complications; G60.0 Hereditary motor and sensory neuropathy; E78.00 Pure hypercholesterolemia, unspecified; M19.90 Unspecified osteoarthritis, unspecified site; Z85.46 Personal history of malignant neoplasm of prostate; Z90.79 Acquired absence of other genital organ(s); Z79.899 Other long term (current) drug therapy; Z79.84 Long term (current) use of oral hypoglycemic drugs; Z90.89 Acquired absence of other organs; Z87.891 Personal history of nicotine dependence; Z80.2 Family history of malignant neoplasm of other respiratory and intrathoracic organs; Z82.3 Family history of stroke
CPT/HCPCS: 36415; 77012; 85007; 85027; 85045; 85610; 85730; 99156

== ENCOUNTER → 2019-07-11 | Outpatient (CLI) | payer MEDICARE ==
[~2019-07-11] MED LIST changes: +CANA100T PO; +LISI10TA2 PO
--- NOTE | 2019-07-11 14:13 | Diagnostic Imaging Report ---
EXAMINATION: PET/CT. INDICATION: Prostate carcinoma. EXAMINATION: After intravenous administration of 14.23 mCi of F18-FDG into the right AC, a series of overlapping emission and transmission PET images was obtained. In the coronal, transaxial and sagittal planes, the area imaged extended from the skull base through the upper thighs. HEIGHT: 5' 10". WEIGHT: 150. BLOOD GLUCOSE: 193. COMPARISON: There are no prior PET/CT examinations available for comparison. FINDINGS: The CT abdomen/pelvis exam of 06/18/2019 noted sclerotic lesions involving the appendicular and axial skeleton. This included a dense area of sclerosis of the right iliac bone. The subsequent Nuclear Medicine bone scan of 06/22/2019 also indicated metastatic skeletal disease of the pelvis and spine. The right iliac lesion was biopsied using CT guidance on 06/29/2019 but the results of that biopsy are not known to me. On this exam, there is only minimal uptake by the osteoblastic lesions. The maximum SUV in the right ilium is 1.73. The maximum SUV in one of the midthoracic vertebra is 1.7. The prostate gland is enlarged and intensely hypermetabolic with a maximum SUV of 34.3. There is no other hypermetabolic activity to suggest malignancy. There is physiologic activity in the brain, kidneys, bowel, and bladder. The CT images fail to show any sign of an acute abnormality. There is some swirling of the vessels in the mesentery in the mid abdomen but there is no sign of a bowel obstruction. IMPRESSION: 1. The prostate gland is enlarged and intensely hypermetabolic. This would be consistent with the patient's diagnosis of carcinoma of the prostate. 2. The blastic lesions involving the spine and pelvis show only slight hypermetabolic activity. Even so, these findings should still be considered neoplastic until proven otherwise. 3. There is no other hypermetabolic activity to suggest the presence of malignancy. Dictated by: Dictated on workstation # [id number]
== END ==
LOC: RAD 09:23
PROVIDERS: ATTEND Internal Medicine Hematology & Oncology
DX: C61 Malignant neoplasm of prostate (principal); M89.9 Disorder of bone, unspecified

== ENCOUNTER 2019-09-07 10:48 | Outpatient (RCR) | payer MEDICARE ==
[2019-07-13 10:57] LABS: BASOPHILS # (AUTO) 0.1 10^3/uL (0.0-0.1); BASOPHILS % (AUTO) 1 % (0-10); EOSINOPHILS % (AUTO) 0 % (0-10); HEMATOCRIT 41 % (40-54); HEMOGLOBIN 13.1 G/DL (13.3-17.7); LYMPHOCYTES # (AUTO) 1.7 X 10^3 (1.0-4.0); LYMPHOCYTES % (AUTO) 21 % (12-44); MEAN CORPUSCULAR HEMOGLOBIN 28 PG (25-34); MEAN CORPUSCULAR HGB CONC 32 G/DL (32-36); MEAN CORPUSCULAR VOLUME 85 FL (80-99); MEAN PLATELET VOLUME 11.4 FL (7.4-10.4); MONOCYTES # (AUTO) 0.7 X 10^3 (0.0-1.0); MONOCYTES % (AUTO) 9 % (0-12); NEUTROPHILS # (AUTO) 5.4 X 10^3 (1.8-7.8); NEUTROPHILS % (AUTO) 69 % (42-75); PLATELET COUNT 300 10^3/uL (130-400); RED CELL DISTRIBUTION WIDTH 14.8 % (10.0-14.5); WHITE BLOOD COUNT 7.8 10^3/uL (4.3-11.0)
[2019-07-13 11:19] LABS: ALBUMIN 4.3 GM/DL (3.2-4.5); BILIRUBIN,TOTAL 0.7 MG/DL (0.1-1.0); CALCIUM 9.9 MG/DL (8.5-10.1); CREATININE SERUM 1.61 MG/DL (0.60-1.30); POTASSIUM 4.8 MMOL/L (3.6-5.0); TOTAL PROTEIN 7.5 GM/DL (6.4-8.2)
[2019-09-07 11:02] LABS: BASOPHILS # (AUTO) 0.1 10^3/uL (0.0-0.1); BASOPHILS % (AUTO) 1 % (0-10); EOSINOPHILS # (AUTO) 0.3 10^3/uL (0.0-0.3); EOSINOPHILS % (AUTO) 4 % (0-10); HEMATOCRIT 38 % (40-54); HEMOGLOBIN 12.6 G/DL (13.3-17.7); LYMPHOCYTES # (AUTO) 1.8 X 10^3 (1.0-4.0); LYMPHOCYTES % (AUTO) 25 % (12-44); MEAN CORPUSCULAR HEMOGLOBIN 29 PG (25-34); MEAN CORPUSCULAR HGB CONC 33 G/DL (32-36); MEAN CORPUSCULAR VOLUME 88 FL (80-99); MEAN PLATELET VOLUME 11.1 FL (7.4-10.4); MONOCYTES # (AUTO) 0.8 X 10^3 (0.0-1.0); MONOCYTES % (AUTO) 12 % (0-12); NEUTROPHILS # (AUTO) 4.2 X 10^3 (1.8-7.8); NEUTROPHILS % (AUTO) 59 % (42-75); PLATELET COUNT 234 10^3/uL (130-400); RED CELL DISTRIBUTION WIDTH 15.3 % (10.0-14.5); WHITE BLOOD COUNT 7.1 10^3/uL (4.3-11.0)
[2019-09-07 11:27] LABS: ALBUMIN 4.4 GM/DL (3.2-4.5); BILIRUBIN,TOTAL 0.7 MG/DL (0.1-1.0); CALCIUM 9.7 MG/DL (8.5-10.1); CREATININE SERUM 1.65 MG/DL (0.60-1.30); POTASSIUM 4.2 MMOL/L (3.6-5.0); TOTAL PROTEIN 7.3 GM/DL (6.4-8.2)
== END 2019-09-21 | disposition home or self-care (01) ==
LOC: ONC 10:48
PROVIDERS: ATTEND Internal Medicine Hematology & Oncology
DX: E11.9 Type 2 diabetes mellitus without complications (principal); E78.00 Pure hypercholesterolemia, unspecified; M89.9 Disorder of bone, unspecified; M54.9 Dorsalgia, unspecified; H91.90 Unspecified hearing loss, unspecified ear; K59.00 Constipation, unspecified; M62.50 Muscle wasting and atrophy, not elsewhere classified, unspecified site; R20.0 Anesthesia of skin; R63.4 Abnormal weight loss; R20.2 Paresthesia of skin; Z85.46 Personal history of malignant neoplasm of prostate; Z90.79 Acquired absence of other genital organ(s)
CPT/HCPCS: 80053; 82728; 83540; 84153; 84402; 84403; 84443; 85025; 99213; 99214

== ENCOUNTER 2019-12-28 09:37 | Outpatient (RCR) | payer MEDICARE ==
[2019-10-02 09:46] LABS: BASOPHILS # (AUTO) 0.1 10^3/uL (0.0-0.1); BASOPHILS % (AUTO) 1 % (0-10); EOSINOPHILS # (AUTO) 0.3 10^3/uL (0.0-0.3); EOSINOPHILS % (AUTO) 5 % (0-10); HEMATOCRIT 38 % (40-54); HEMOGLOBIN 12.8 G/DL (13.3-17.7); LYMPHOCYTES # (AUTO) 1.9 X 10^3 (1.0-4.0); LYMPHOCYTES % (AUTO) 28 % (12-44); MEAN CORPUSCULAR HEMOGLOBIN 29 PG (25-34); MEAN CORPUSCULAR HGB CONC 34 G/DL (32-36); MEAN CORPUSCULAR VOLUME 86 FL (80-99); MEAN PLATELET VOLUME 11.9 FL (7.4-10.4); MONOCYTES # (AUTO) 0.8 X 10^3 (0.0-1.0); MONOCYTES % (AUTO) 12 % (0-12); NEUTROPHILS # (AUTO) 3.6 X 10^3 (1.8-7.8); NEUTROPHILS % (AUTO) 54 % (42-75); PLATELET COUNT 188 10^3/uL (130-400); WHITE BLOOD COUNT 6.6 10^3/uL (4.3-11.0)
[2019-10-02 10:10] LABS: ALBUMIN 4.2 GM/DL (3.2-4.5); BILIRUBIN,TOTAL 0.6 MG/DL (0.1-1.0); CALCIUM 9.8 MG/DL (8.5-10.1); CREATININE SERUM 1.75 MG/DL (0.60-1.30); POTASSIUM 4.7 MMOL/L (3.6-5.0)
[2019-10-30 09:33] LABS: BASOPHILS % (AUTO) 1 % (0-10); EOSINOPHILS # (AUTO) 0.2 10^3/uL (0.0-0.3); EOSINOPHILS % (AUTO) 4 % (0-10); HEMATOCRIT 35 % (40-54); HEMOGLOBIN 11.6 G/DL (13.3-17.7); LYMPHOCYTES # (AUTO) 1.6 X 10^3 (1.0-4.0); LYMPHOCYTES % (AUTO) 27 % (12-44); MEAN CORPUSCULAR HEMOGLOBIN 30 PG (25-34); MEAN CORPUSCULAR HGB CONC 34 G/DL (32-36); MEAN CORPUSCULAR VOLUME 90 FL (80-99); MEAN PLATELET VOLUME 10.9 FL (7.4-10.4); MONOCYTES # (AUTO) 0.8 X 10^3 (0.0-1.0); MONOCYTES % (AUTO) 14 % (0-12); NEUTROPHILS # (AUTO) 3.3 X 10^3 (1.8-7.8); NEUTROPHILS % (AUTO) 55 % (42-75); PLATELET COUNT 247 10^3/uL (130-400); WHITE BLOOD COUNT 6.1 10^3/uL (4.3-11.0)
[2019-10-30 09:54] LABS: ALBUMIN 4.1 GM/DL (3.2-4.5); BILIRUBIN,TOTAL 0.6 MG/DL (0.1-1.0); CALCIUM 9.4 MG/DL (8.5-10.1); CREATININE SERUM 1.68 MG/DL (0.60-1.30); POTASSIUM 4.7 MMOL/L (3.6-5.0); TOTAL PROTEIN 7.1 GM/DL (6.4-8.2)
[~2019-12-28 09:37] MED LIST changes: +DENOSUMAB 120 MG/1.7 ML (XGEVA) SQ SCH
[2019-12-28 09:54] LABS: BASOPHILS # (AUTO) 0.1 10^3/uL (0.0-0.1); BASOPHILS % (AUTO) 1 % (0-10); EOSINOPHILS # (AUTO) 0.4 10^3/uL (0.0-0.3); EOSINOPHILS % (AUTO) 5 % (0-10); HEMATOCRIT 38 % (40-54); HEMOGLOBIN 12.7 g/dL (13.3-17.7); LYMPHOCYTES # (AUTO) 2.1 10^3/uL (1.0-4.0); LYMPHOCYTES % (AUTO) 27 % (12-44); MEAN CORPUSCULAR HEMOGLOBIN 31 pg (25-34); MEAN CORPUSCULAR HGB CONC 34 g/dL (32-36); MEAN CORPUSCULAR VOLUME 90 fL (80-99); MEAN PLATELET VOLUME 11.6 fL (9.0-12.2); MONOCYTES # (AUTO) 0.8 10^3/uL (0.0-1.0); MONOCYTES % (AUTO) 10 % (0-12); NEUTROPHILS # (AUTO) 4.3 10^3/uL (1.8-7.8); NEUTROPHILS % (AUTO) 56 % (42-75); PLATELET COUNT 210 10^3/uL (130-400); WHITE BLOOD COUNT 7.6 10^3/uL (4.3-11.0)
[2019-12-28 10:15] LABS: ALBUMIN 4.1 GM/DL (3.2-4.5); BILIRUBIN,TOTAL 0.6 MG/DL (0.1-1.0); CALCIUM 9.6 MG/DL (8.5-10.1); CREATININE SERUM 1.78 MG/DL (0.60-1.30); POTASSIUM 4.5 MMOL/L (3.6-5.0); TOTAL PROTEIN 6.9 GM/DL (6.4-8.2)
== END 2019-12-31 | disposition home or self-care (01) ==
LOC: ONC 09:37
PROVIDERS: ATTEND Internal Medicine Hematology & Oncology
DX: C61 Malignant neoplasm of prostate (principal); E11.9 Type 2 diabetes mellitus without complications; E78.00 Pure hypercholesterolemia, unspecified; M89.9 Disorder of bone, unspecified; M54.9 Dorsalgia, unspecified; H91.90 Unspecified hearing loss, unspecified ear; K59.00 Constipation, unspecified; M62.50 Muscle wasting and atrophy, not elsewhere classified, unspecified site; R20.0 Anesthesia of skin; R63.4 Abnormal weight loss; R20.2 Paresthesia of skin; Z85.46 Personal history of malignant neoplasm of prostate; Z90.79 Acquired absence of other genital organ(s)
CPT/HCPCS: 80053; 84153; 85025; 96372; 99213

== ENCOUNTER → 2020-06-11 | Outpatient (CLI) | payer MEDICARE ==
[~2020-06-11] MED LIST changes: -DENOSUMAB 120 MG/1.7 ML (XGEVA) SQ SCH; -LISI10TA2 PO; +LISI10TA25 PO
== END ==
LOC: LAB 09:27
PROVIDERS: ATTEND Internal Medicine
DX: E11.9 Type 2 diabetes mellitus without complications (principal)
CPT/HCPCS: 36415; 83036

== ENCOUNTER 2020-06-13 10:01 | Outpatient (RCR) | payer MEDICARE ==
[2020-03-21 10:18] LABS: BASOPHILS % (AUTO) 0 % (0-10); EOSINOPHILS # (AUTO) 0.2 10^3/uL (0.0-0.3); EOSINOPHILS % (AUTO) 2 % (0-10); HEMATOCRIT 39 % (40-54); HEMOGLOBIN 12.7 g/dL (13.3-17.7); LYMPHOCYTES # (AUTO) 1.9 10^3/uL (1.0-4.0); LYMPHOCYTES % (AUTO) 21 % (12-44); MEAN CORPUSCULAR HEMOGLOBIN 30 pg (25-34); MEAN CORPUSCULAR HGB CONC 33 g/dL (32-36); MEAN CORPUSCULAR VOLUME 92 fL (80-99); MEAN PLATELET VOLUME 11.2 fL (9.0-12.2); MONOCYTES % (AUTO) 10 % (0-12); NEUTROPHILS % (AUTO) 66 % (42-75); PLATELET COUNT 227 10^3/uL (130-400); WHITE BLOOD COUNT 9.2 10^3/uL (4.3-11.0)
[2020-03-21 10:52] LABS: ALBUMIN 4.3 GM/DL (3.2-4.5); BILIRUBIN,TOTAL 0.8 MG/DL (0.1-1.0); CALCIUM 9.3 MG/DL (8.5-10.1); CREATININE SERUM 1.67 MG/DL (0.60-1.30); POTASSIUM 4.4 MMOL/L (3.6-5.0); TOTAL PROTEIN 7.4 GM/DL (6.4-8.2)
[2020-06-11 09:34] LABS: BASOPHILS # (AUTO) 0.1 10^3/uL (0.0-0.1); BASOPHILS % (AUTO) 1 % (0-10); EOSINOPHILS # (AUTO) 0.1 10^3/uL (0.0-0.3); EOSINOPHILS % (AUTO) 2 % (0-10); HEMATOCRIT 39 % (40-54); HEMOGLOBIN 13.1 g/dL (13.3-17.7); LYMPHOCYTES # (AUTO) 0.9 10^3/uL (1.0-4.0); LYMPHOCYTES % (AUTO) 10 % (12-44); MEAN CORPUSCULAR HEMOGLOBIN 30 pg (25-34); MEAN CORPUSCULAR HGB CONC 33 g/dL (32-36); MEAN CORPUSCULAR VOLUME 89 fL (80-99); MEAN PLATELET VOLUME 11.2 fL (9.0-12.2); MONOCYTES # (AUTO) 0.9 10^3/uL (0.0-1.0); MONOCYTES % (AUTO) 10 % (0-12); NEUTROPHILS # (AUTO) 6.5 10^3/uL (1.8-7.8); NEUTROPHILS % (AUTO) 77 % (42-75); PLATELET COUNT 192 10^3/uL (130-400); WHITE BLOOD COUNT 8.5 10^3/uL (4.3-11.0)
[2020-06-11 09:53] LABS: ALBUMIN 4.2 GM/DL (3.2-4.5); BILIRUBIN,TOTAL 0.7 MG/DL (0.1-1.0); CALCIUM 9.3 MG/DL (8.5-10.1); POTASSIUM 4.8 MMOL/L (3.6-5.0); TOTAL PROTEIN 7.3 GM/DL (6.4-8.2)
[~2020-06-13 10:01] MED LIST changes: +DENOSUMAB 120 MG/1.7 ML (XGEVA) SQ SCH
== END 2020-06-19 | disposition home or self-care (01) ==
LOC: ONC 10:01
PROVIDERS: ATTEND Internal Medicine Hematology & Oncology
DX: C61 Malignant neoplasm of prostate (principal); E11.9 Type 2 diabetes mellitus without complications; E78.00 Pure hypercholesterolemia, unspecified; M89.9 Disorder of bone, unspecified; M54.9 Dorsalgia, unspecified; D64.9 Anemia, unspecified; H91.90 Unspecified hearing loss, unspecified ear; K59.00 Constipation, unspecified; M62.50 Muscle wasting and atrophy, not elsewhere classified, unspecified site; R20.0 Anesthesia of skin; R63.4 Abnormal weight loss; R20.2 Paresthesia of skin; Z85.46 Personal history of malignant neoplasm of prostate; Z90.79 Acquired absence of other genital organ(s)
CPT/HCPCS: 80053; 84153; 85025; 96372; G0463

== ENCOUNTER → 2020-09-10 | Outpatient (CLI) | payer MEDICARE ==
[~2020-09-10] MED LIST changes: -DENOSUMAB 120 MG/1.7 ML (XGEVA) SQ SCH
--- NOTE | 2020-09-10 14:54 | Diagnostic Imaging Report ---
INDICATION: Malignant neoplasm of the prostate with rising PSA. TECHNIQUE: Serum blood glucose level at the time of injection is 85 mg/dL. Patient was administered 15.5 mCi F-18 FDG intravenously in the right antecubital location and PET imaging was performed from the top of the skull to mid thighs. Noncontrast CT was also performed for attenuation correction and anatomic correlation. COMPARISON: Correlation is made with prior PET/CT study from 07/11/2019. FINDINGS: There is symmetric activity throughout the brain. Soft tissues of the neck are unremarkable. No hypermetabolic mediastinal or hilar lymph nodes are seen. No definite pulmonary parenchymal hypermetabolism is identified. There is physiologic activity throughout the GI AND tracts of the abdomen and pelvis. There appears to be some uptake involving a left iliac lymph node measuring 15 mm x 9 mm. SUV max is 4.7. No other pelvic lymphadenopathy is seen. Prostate appears to be surgically absent. There are numerous osteoblastic lesions in the lower thoracic and lumbar spine as well as the bony pelvis. These do not demonstrate hypermetabolism. IMPRESSION: Unremarkable PET/CT study apart from uptake involving a left iliac lymph node, suspicious for metastasis. No other significant abnormality is detected. Dictated by: Dictated on workstation # [id number]
== END ==
LOC: RAD 12:00
PROVIDERS: ATTEND Internal Medicine Hematology & Oncology
DX: C61 Malignant neoplasm of prostate (principal); R97.21 Rising PSA following treatment for malignant neoplasm of prostate
CPT/HCPCS: 78815; A9552

== ENCOUNTER 2020-09-16 10:44 | Outpatient (RCR) | payer MEDICARE ==
[2020-08-29 09:50] LABS: BASOPHILS # (AUTO) 0.1 10^3/uL (0.0-0.1); BASOPHILS % (AUTO) 1 % (0-10); EOSINOPHILS # (AUTO) 0.3 10^3/uL (0.0-0.3); EOSINOPHILS % (AUTO) 4 % (0-10); HEMATOCRIT 37 % (40-54); HEMOGLOBIN 12.1 g/dL (13.3-17.7); LYMPHOCYTES # (AUTO) 2.3 10^3/uL (1.0-4.0); LYMPHOCYTES % (AUTO) 31 % (12-44); MEAN CORPUSCULAR HEMOGLOBIN 29 pg (25-34); MEAN CORPUSCULAR HGB CONC 32 g/dL (32-36); MEAN CORPUSCULAR VOLUME 90 fL (80-99); MEAN PLATELET VOLUME 11.9 fL (9.0-12.2); MONOCYTES # (AUTO) 0.9 10^3/uL (0.0-1.0); MONOCYTES % (AUTO) 13 % (0-12); NEUTROPHILS # (AUTO) 3.8 10^3/uL (1.8-7.8); NEUTROPHILS % (AUTO) 51 % (42-75); PLATELET COUNT 225 10^3/uL (130-400); WHITE BLOOD COUNT 7.4 10^3/uL (4.3-11.0)
[2020-08-29 10:16] LABS: ALBUMIN 3.9 GM/DL (3.2-4.5); BILIRUBIN,TOTAL 0.6 MG/DL (0.1-1.0); CALCIUM 9.8 MG/DL (8.5-10.1); CREATININE SERUM 1.65 MG/DL (0.60-1.30); POTASSIUM 4.3 MMOL/L (3.6-5.0); TOTAL PROTEIN 7.4 GM/DL (6.4-8.2)
[~2020-09-16 10:44] MED LIST changes: +DENOSUMAB 120 MG/1.7 ML (XGEVA) SQ SCH; -SULF1TAB35 PO; +SULF1TAB38 PO
== END 2020-11-27 | disposition home or self-care (01) ==
LOC: ONC 10:44
PROVIDERS: ATTEND Internal Medicine Hematology & Oncology
DX: C61 Malignant neoplasm of prostate (principal); E11.9 Type 2 diabetes mellitus without complications; E78.00 Pure hypercholesterolemia, unspecified
CPT/HCPCS: 80053; 84153; 85025; 96372; 99213

== ENCOUNTER → 2020-12-23 | Outpatient (CLI) | payer MEDICARE ==
[~2020-12-23] MED LIST changes: -DENOSUMAB 120 MG/1.7 ML (XGEVA) SQ SCH
--- NOTE | 2020-12-23 09:35 | Diagnostic Imaging Report ---
EXAMINATION: US Retroperitoneal Complete. TECHNIQUE: Multiple real-time grayscale images were obtained over the kidneys in various projections bilaterally. HISTORY: CHRONIC KIDNEY DISEASE COMPARISON: 06/18/2019 CT FINDINGS: The right kidney demonstrates normal echogenicity and cortical thickness. The right kidney measures 9.6 x 4.7 x 5.2 cm. No hydronephrosis. The left kidney demonstrates normal echogenicity and cortical thickness. The left kidney measures 10.3 x 4.5 x 4.7 cm. No hydronephrosis. The urinary bladder is normal. Bilateral ureteral jets are seen. IMPRESSION: 1. Unremarkable kidneys without hydronephrosis. Dictated by: Dictated on workstation # [id number]
== END ==
LOC: RAD 09:00
PROVIDERS: ATTEND Internal Medicine Nephrology
DX: I12.9 Hypertensive chronic kidney disease with stage 1 through stage 4 chronic kidney disease, or unspecified chronic kidney disease (principal); E11.22 Type 2 diabetes mellitus with diabetic chronic kidney disease; N18.32 Chronic kidney disease, stage 3b
CPT/HCPCS: 76770

== ENCOUNTER → 2021-02-04 | Outpatient (CLI) | payer MEDICARE ==
--- NOTE | 2021-02-04 12:13 | Diagnostic Imaging Report ---
EXAMINATION: PET/CT. INDICATION: Prostate carcinoma. EXAMINATION: After intravenous administration of 15.14 mCi of F18-FDG, a series of overlapping emission and transmission PET images was obtained. In the coronal, transaxial and sagittal planes, the area imaged extended from the skull base through the upper thighs. Height: 6'0" Weight: 165 pounds Blood glucose: 103 FINDINGS: The previous PET/CT exam performed on 09/10/2020 noted a 15 x 9 mm hypermetabolic node in the left iliac chain. This had a maximum SUV of 4.7. That finding is again evident on this study and does not appear to have changed significantly in size. The maximum SUV is now 5.8. Also, just superior to this node, there is another small nick area of uptake. This finding measures less than 1 cm and has a maximum SUV of 4.7. This finding is near several segments of small bowel, and it is possible that this could be due to physiologic uptake in the small bowel as opposed to a discrete nodule. There is no other hypermetabolic activity to suggest the presence of malignancy. As noted on the previous study, the CT images do show extensive blastic lesions throughout the spine and the pelvis. As on the previous exam, these remain non-hypermetabolic. The CT images fail to show any sign of an acute abnormality. IMPRESSION: 1. The small hypermetabolic node in the left iliac chain seen previously is again evident and does not appear to have changed significantly. The maximum SUV is slightly higher, however, at 5.8. 2. No new hypermetabolic activity has developed to suggest metastatic disease. The small area of increased hypermetabolic activity in the left pelvis may be related to the small bowel or to a neoplastic node. 3. There continue to be numerous blastic lesions throughout the spine and the pelvis. These remain non-hypermetabolic. Dictated by: Dictated on workstation # [id number]
== END ==
LOC: RAD 08:15
PROVIDERS: ATTEND Internal Medicine Hematology & Oncology
DX: C61 Malignant neoplasm of prostate (principal)
CPT/HCPCS: 78815; A9552

== ENCOUNTER 2021-02-06 10:23 | Outpatient (RCR) | payer MEDICARE ==
[2020-12-05 10:29] LABS: BASOPHILS # (AUTO) 0.1 10^3/uL (0.0-0.1); BASOPHILS % (AUTO) 1 % (0-10); EOSINOPHILS # (AUTO) 0.3 10^3/uL (0.0-0.3); EOSINOPHILS % (AUTO) 5 % (0-10); HEMATOCRIT 39 % (40-54); HEMOGLOBIN 12.7 g/dL (13.3-17.7); LYMPHOCYTES # (AUTO) 1.6 10^3/uL (1.0-4.0); LYMPHOCYTES % (AUTO) 24 % (12-44); MEAN CORPUSCULAR HEMOGLOBIN 30 pg (25-34); MEAN CORPUSCULAR HGB CONC 33 g/dL (32-36); MEAN CORPUSCULAR VOLUME 91 fL (80-99); MEAN PLATELET VOLUME 11.2 fL (9.0-12.2); MONOCYTES # (AUTO) 0.7 10^3/uL (0.0-1.0); MONOCYTES % (AUTO) 10 % (0-12); NEUTROPHILS # (AUTO) 4.1 10^3/uL (1.8-7.8); NEUTROPHILS % (AUTO) 60 % (42-75); PLATELET COUNT 227 10^3/uL (130-400); WHITE BLOOD COUNT 6.7 10^3/uL (4.3-11.0)
[2020-12-05 10:53] LABS: BILIRUBIN,TOTAL 0.5 MG/DL (0.1-1.0); CALCIUM 9.8 MG/DL (8.5-10.1); CREATININE SERUM 1.75 MG/DL (0.60-1.30); POTASSIUM 4.6 MMOL/L (3.6-5.0); TOTAL PROTEIN 7.2 GM/DL (6.4-8.2)
[2021-02-03 09:25] LABS: BASOPHILS # (AUTO) 0.1 10^3/uL (0.0-0.1); BASOPHILS % (AUTO) 1 % (0-10); EOSINOPHILS # (AUTO) 0.3 10^3/uL (0.0-0.3); EOSINOPHILS % (AUTO) 4 % (0-10); HEMATOCRIT 41 % (40-54); HEMOGLOBIN 13.3 g/dL (13.3-17.7); LYMPHOCYTES % (AUTO) 26 % (12-44); MEAN CORPUSCULAR HEMOGLOBIN 29 pg (25-34); MEAN CORPUSCULAR HGB CONC 32 g/dL (32-36); MEAN CORPUSCULAR VOLUME 91 fL (80-99); MEAN PLATELET VOLUME 10.9 fL (9.0-12.2); MONOCYTES % (AUTO) 13 % (0-12); NEUTROPHILS # (AUTO) 4.2 10^3/uL (1.8-7.8); NEUTROPHILS % (AUTO) 56 % (42-75); PLATELET COUNT 249 10^3/uL (130-400); WHITE BLOOD COUNT 7.5 10^3/uL (4.3-11.0)
[2021-02-03 09:43] LABS: ALBUMIN 4.3 GM/DL (3.2-4.5); BILIRUBIN,TOTAL 0.7 MG/DL (0.1-1.0); CALCIUM 9.8 MG/DL (8.5-10.1); CREATININE SERUM 1.91 MG/DL (0.60-1.30); POTASSIUM 4.4 MMOL/L (3.6-5.0); TOTAL PROTEIN 7.7 GM/DL (6.4-8.2)
[~2021-02-06 10:23] MED LIST changes: +DENOSUMAB 120 MG/1.7 ML (XGEVA) SQ SCH
== END 2021-03-05 | disposition home or self-care (01) ==
LOC: ONC 10:23
PROVIDERS: ATTEND Internal Medicine Hematology & Oncology
DX: C61 Malignant neoplasm of prostate (principal); E11.9 Type 2 diabetes mellitus without complications; E78.00 Pure hypercholesterolemia, unspecified
CPT/HCPCS: 80053; 84153; 85025; 96372; 99213

== ENCOUNTER 2021-03-12 10:25 | Outpatient (RCR) | payer MEDICARE ==
[2021-03-12 10:34] LABS: BASOPHILS # (AUTO) 0.1 10^3/uL (0.0-0.1); BASOPHILS % (AUTO) 1 % (0-10); EOSINOPHILS # (AUTO) 0.3 10^3/uL (0.0-0.3); EOSINOPHILS % (AUTO) 4 % (0-10); HEMATOCRIT 42 % (40-54); HEMOGLOBIN 13.7 g/dL (13.3-17.7); LYMPHOCYTES # (AUTO) 2.2 10^3/uL (1.0-4.0); LYMPHOCYTES % (AUTO) 30 % (12-44); MEAN CORPUSCULAR HEMOGLOBIN 30 pg (25-34); MEAN CORPUSCULAR HGB CONC 33 g/dL (32-36); MEAN CORPUSCULAR VOLUME 91 fL (80-99); MEAN PLATELET VOLUME 11.3 fL (9.0-12.2); MONOCYTES # (AUTO) 0.9 10^3/uL (0.0-1.0); MONOCYTES % (AUTO) 12 % (0-12); NEUTROPHILS # (AUTO) 3.8 10^3/uL (1.8-7.8); NEUTROPHILS % (AUTO) 52 % (42-75); PLATELET COUNT 238 10^3/uL (130-400); WHITE BLOOD COUNT 7.3 10^3/uL (4.3-11.0)
[2021-03-12 10:54] LABS: ALBUMIN 4.3 GM/DL (3.2-4.5); BILIRUBIN,TOTAL 0.5 MG/DL (0.1-1.0); CALCIUM 9.8 MG/DL (8.5-10.1); CREATININE SERUM 1.66 MG/DL (0.60-1.30); POTASSIUM 4.4 MMOL/L (3.6-5.0); TOTAL PROTEIN 7.7 GM/DL (6.4-8.2)
== END 2021-04-07 | disposition home or self-care (01) ==
LOC: ONC 10:25
PROVIDERS: ATTEND Internal Medicine Hematology & Oncology
DX: C61 Malignant neoplasm of prostate (principal); C79.51 Secondary malignant neoplasm of bone; D64.9 Anemia, unspecified; E11.9 Type 2 diabetes mellitus without complications; E78.00 Pure hypercholesterolemia, unspecified
CPT/HCPCS: 80053; 84153; 85025; 96372; G0463; 99213

== ENCOUNTER → 2021-04-24 | Outpatient (CLI) | payer MEDICARE ==
[~2021-04-24] MED LIST changes: -DENOSUMAB 120 MG/1.7 ML (XGEVA) SQ SCH
--- NOTE | 2021-04-24 15:35 | Diagnostic Imaging Report ---
Exam: Nuclear medicine whole-body bone scan. Date: April 24, 2021. Indication: 80-year-old male, history of prostate cancer with bone metastasis. Comparison: Nuclear medicine whole body bone scan June 22, 2019. Findings: 26.9 mCi of technetium labeled MDP radiotracer was administered.. There is radiotracer uptake in the urinary bladder which does limit evaluation of portions of the pelvis. There are radiotracer avid lesions involving the left lesser trochanter, right intertrochanteric femur, right acetabulum, right iliac bone, left acetabulum, L1 vertebral body, and L5 vertebral body. There are also radiotracer avid lesions of the right scapula. The overall number of radiotracer avid bone lesions is decreased since June 22, 2019. Impression: 1. Persistent multifocal osteoblastic bone metastasis with interval decrease in number of radiotracer avid lesion since June 22, 2019. Dictated by: Dictated on workstation # [id number]
== END ==
LOC: CARD 12:00
PROVIDERS: ATTEND Internal Medicine
DX: C61 Malignant neoplasm of prostate (principal); C79.51 Secondary malignant neoplasm of bone
CPT/HCPCS: 78306; A9503

== ENCOUNTER 2021-06-12 12:56 | Outpatient (RCR) | payer MEDICARE ==
[2021-06-09 09:43] LABS: BASOPHILS # (AUTO) 0.1 10^3/uL (0.0-0.1); BASOPHILS % (AUTO) 1 % (0-10); EOSINOPHILS # (AUTO) 0.2 10^3/uL (0.0-0.3); EOSINOPHILS % (AUTO) 2 % (0-10); HEMATOCRIT 40 % (40-54); HEMOGLOBIN 13.1 g/dL (13.3-17.7); LYMPHOCYTES # (AUTO) 2.1 10^3/uL (1.0-4.0); LYMPHOCYTES % (AUTO) 22 % (12-44); MEAN CORPUSCULAR HEMOGLOBIN 30 pg (25-34); MEAN CORPUSCULAR HGB CONC 33 g/dL (32-36); MEAN CORPUSCULAR VOLUME 91 fL (80-99); MONOCYTES # (AUTO) 1.2 10^3/uL (0.0-1.0); MONOCYTES % (AUTO) 12 % (0-12); NEUTROPHILS # (AUTO) 6.2 10^3/uL (1.8-7.8); NEUTROPHILS % (AUTO) 63 % (42-75); PLATELET COUNT 253 10^3/uL (130-400); WHITE BLOOD COUNT 9.9 10^3/uL (4.3-11.0)
[2021-06-09 10:04] LABS: ALBUMIN 4.2 GM/DL (3.2-4.5); BILIRUBIN,TOTAL 0.7 MG/DL (0.1-1.0); CALCIUM 9.4 MG/DL (8.5-10.1); CREATININE SERUM 1.7 MG/DL (0.60-1.30); POTASSIUM 4.7 MMOL/L (3.6-5.0); TOTAL PROTEIN 7.5 GM/DL (6.4-8.2)
[~2021-06-12 12:56] MED LIST changes: +DENOSUMAB 120 MG/1.7 ML (XGEVA) SQ SCH
== END 2021-07-05 | disposition home or self-care (01) ==
LOC: ONC 12:56
PROVIDERS: ATTEND Internal Medicine Hematology & Oncology
DX: C61 Malignant neoplasm of prostate (principal); C79.51 Secondary malignant neoplasm of bone; E78.00 Pure hypercholesterolemia, unspecified; E11.22 Type 2 diabetes mellitus with diabetic chronic kidney disease; N18.9 Chronic kidney disease, unspecified; D63.1 Anemia in chronic kidney disease
CPT/HCPCS: 36415; 80053; 84153; 85025; 99213

== ENCOUNTER → 2021-08-11 | Outpatient (CLI) | payer MEDICARE ==
[~2021-08-11] MED LIST changes: -DENOSUMAB 120 MG/1.7 ML (XGEVA) SQ SCH
--- NOTE | 2021-08-11 11:29 | Diagnostic Imaging Report ---
INDICATION: Malignant tumor of the prostate gland. This study is performed for restaging and evaluate response to immunotherapy. TECHNIQUE: The serum blood glucose level at the time of injection was 100 mg/dL. The patient was administered 14.0 mCi of F-18 FDG intravenously in the right antecubital location and PET imaging was performed from the top of the skull to the mid thighs. A noncontrast CT was also performed for attenuation correction and anatomic correlation. COMPARISON: Prior PET/CT study from 02/04/2021. FINDINGS: There is symmetric activity throughout the brain. The soft tissues of the neck are unremarkable. No definite mediastinal or hilar hypermetabolism is seen. No pulmonary parenchymal hypermetabolism is identified. There is physiologic activity throughout the GI and tracts of the abdomen and pelvis. There are two hypermetabolic foci within the left hemipelvis, similar to the prior exam. The most cephalad focus demonstrates an SUV max of 11.1. More inferiorly along the left iliac chain, a metabolic focus shows an SUV max of 4.3. No other hypermetabolic foci are seen. Numerous osteoblastic lesions are again noted through the axial skeleton; however, these do not appear to be hypermetabolic. There are blastic lesions in the pelvis as well. IMPRESSION: Overall stable PET/CT study when compared with the prior exam from 02/04/2021. Dictated by: Dictated on workstation # [id number]
== END ==
LOC: RAD 08:15
PROVIDERS: ATTEND Internal Medicine Hematology & Oncology
DX: C61 Malignant neoplasm of prostate (principal); D64.9 Anemia, unspecified; R97.21 Rising PSA following treatment for malignant neoplasm of prostate
CPT/HCPCS: 78815; A9552

== ENCOUNTER 2021-09-03 13:30 | Outpatient (RCR) | payer MEDICARE ==
[2021-09-01 10:27] LABS: BILIRUBIN,TOTAL 0.6 MG/DL (0.1-1.0); CALCIUM 9.5 MG/DL (8.5-10.1); CREATININE SERUM 1.82 MG/DL (0.60-1.30); POTASSIUM 4.3 MMOL/L (3.6-5.0); TOTAL PROTEIN 7.2 GM/DL (6.4-8.2)
== END 2021-09-04 | disposition home or self-care (01) ==
LOC: ONC 13:30
PROVIDERS: ATTEND Internal Medicine Hematology & Oncology
DX: C61 Malignant neoplasm of prostate (principal); E78.00 Pure hypercholesterolemia, unspecified; E11.9 Type 2 diabetes mellitus without complications
CPT/HCPCS: 36415; 80053; 84153; 99213

== ENCOUNTER → 2021-09-03 | Outpatient (CLI) | payer MEDICARE ==
[2021-09-03 14:06] LABS: BASOPHILS # (AUTO) 0.1 10^3/uL (0.0-0.1); BASOPHILS % (AUTO) 1 % (0-10); EOSINOPHILS # (AUTO) 0.3 10^3/uL (0.0-0.3); EOSINOPHILS % (AUTO) 4 % (0-10); HEMATOCRIT 36 % (40-54); HEMOGLOBIN 11.8 g/dL (13.3-17.7); LYMPHOCYTES # (AUTO) 1.6 10^3/uL (1.0-4.0); LYMPHOCYTES % (AUTO) 21 % (12-44); MEAN CORPUSCULAR HEMOGLOBIN 29 pg (25-34); MEAN CORPUSCULAR HGB CONC 33 g/dL (32-36); MEAN CORPUSCULAR VOLUME 90 fL (80-99); MEAN PLATELET VOLUME 11.1 fL (9.0-12.2); MONOCYTES # (AUTO) 0.8 10^3/uL (0.0-1.0); MONOCYTES % (AUTO) 12 % (0-12); NEUTROPHILS # (AUTO) 4.5 10^3/uL (1.8-7.8); NEUTROPHILS % (AUTO) 62 % (42-75); PLATELET COUNT 250 10^3/uL (130-400); WHITE BLOOD COUNT 7.2 10^3/uL (4.3-11.0)
== END ==
LOC: LABNPT 13:58
PROVIDERS: ATTEND Internal Medicine Hematology & Oncology
DX: C61 Malignant neoplasm of prostate (principal); D64.9 Anemia, unspecified; R97.21 Rising PSA following treatment for malignant neoplasm of prostate
CPT/HCPCS: 85025

== ENCOUNTER 2021-09-11 13:46 | Outpatient (RCR) | payer MEDICARE ==
[~2021-09-11 13:46] MED LIST changes: +DENOSUMAB 120 MG/1.7 ML (XGEVA) SQ SCH
== END 2021-10-05 | disposition home or self-care (01) ==
LOC: ONC 13:46
PROVIDERS: ATTEND Internal Medicine Hematology & Oncology
DX: C61 Malignant neoplasm of prostate (principal); E78.00 Pure hypercholesterolemia, unspecified; E11.9 Type 2 diabetes mellitus without complications
CPT/HCPCS: 96372

== ENCOUNTER 2021-12-04 09:27 | Outpatient (RCR) | payer MEDICARE ==
[2021-11-28 10:50] LABS: BASOPHILS # (AUTO) 0.1 10^3/uL (0.0-0.1); BASOPHILS % (AUTO) 1 % (0-10); EOSINOPHILS # (AUTO) 0.3 10^3/uL (0.0-0.3); EOSINOPHILS % (AUTO) 5 % (0-10); HEMATOCRIT 39 % (40-54); HEMOGLOBIN 12.8 g/dL (13.3-17.7); LYMPHOCYTES # (AUTO) 1.3 10^3/uL (1.0-4.0); LYMPHOCYTES % (AUTO) 24 % (12-44); MEAN CORPUSCULAR HEMOGLOBIN 29 pg (25-34); MEAN CORPUSCULAR HGB CONC 33 g/dL (32-36); MEAN CORPUSCULAR VOLUME 88 fL (80-99); MEAN PLATELET VOLUME 10.1 fL (9.0-12.2); MONOCYTES # (AUTO) 0.7 10^3/uL (0.0-1.0); MONOCYTES % (AUTO) 14 % (0-12); NEUTROPHILS # (AUTO) 2.9 10^3/uL (1.8-7.8); NEUTROPHILS % (AUTO) 55 % (42-75); PLATELET COUNT 295 10^3/uL (130-400); WHITE BLOOD COUNT 5.2 10^3/uL (4.3-11.0)
[2021-11-28 11:14] LABS: ALBUMIN 3.8 GM/DL (3.2-4.5); BILIRUBIN,TOTAL 0.8 MG/DL (0.1-1.0); CALCIUM 9.2 MG/DL (8.5-10.1); CREATININE SERUM 1.5 MG/DL (0.60-1.30); POTASSIUM 4.8 MMOL/L (3.6-5.0); TOTAL PROTEIN 7.2 GM/DL (6.4-8.2)
[~2021-12-04 09:27] MED LIST changes: -DENOSUMAB 120 MG/1.7 ML (XGEVA) SQ SCH
== END 2021-12-05 | disposition home or self-care (01) ==
LOC: ONC 09:27
PROVIDERS: ATTEND Internal Medicine Hematology & Oncology
DX: C61 Malignant neoplasm of prostate (principal); E78.00 Pure hypercholesterolemia, unspecified; E11.9 Type 2 diabetes mellitus without complications
CPT/HCPCS: 36415; 80053; 84153; 84403; 85025; 99213

== ENCOUNTER → 2021-12-23 | Outpatient (CLI) | payer MEDICARE ==
[~2021-12-23] MED LIST changes: +CATHETER FLUSH 10 ML SYR IV PRN; +HOLD METFORMIN - RECEIVED CONTRAST 20 ML VIAL IV SCH; +IOHEXOL 350 MG/ML 100 ML (OMNIPAQUE 350) VIAL IV ONE; +NS 100 ML (IVPB) BAG IV ONE
--- NOTE | 2021-12-23 15:04 | Diagnostic Imaging Report ---
PROCEDURE: CT chest, abdomen, and pelvis with contrast. TECHNIQUE: Multiple contiguous axial images were obtained through the chest, abdomen, and pelvis after the administration of intravenous contrast. Auto Exposure Controls were utilized during the CT exam to meet ALARA standards for radiation dose reduction. INDICATION: Prostate cancer. COMPARISON: Correlation is made with a metabolic PET CT of 08/11/2021. FINDINGS: CHEST: There is no lung mass. There is no suspicious pulmonary nodule. There is no infiltrate or edema. No chest effusion. No axillary, hilar, or mediastinal lymphadenopathy. ABDOMEN/PELVIS: There are a few scattered cysts in the liver, most notably in the left lobe, unchanged. No soft tissue density or enhancing liver mass. The gallbladder is partly contracted. No bile duct dilatation. The spleen and adrenals are negative. The pancreas is normal. The kidneys are unobstructed. There is no ileus or bowel obstruction. There is no ascites; however, there is a mildly elevated distal colonic fecal load which may reflect constipation. Soft tissue fullness in the left pelvic sidewall along the iliac vascularity is again noted. This tissue was previously hypermetabolic on PET and is presumed owing to some external iliac chain metastatic adenopathy. The right pelvic lymph node stations are unremarkable. The inguinal canals and groin show a few small fat-containing lymph nodes without distortion or change. These were non-metabolically active at prior PET. 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 Disease progression is most pronounced in the pelvis. Chronic L4 on L5 anterolisthesis shows no obvious change. IMPRESSION: CT findings suggest progressive widespread osteosclerotic bony metastatic disease. Left pelvic adenopathy has not definitively changed but may have at least mildly increased. Dictated by: Dictated on workstation # [id number]
== END ==
LOC: RAD 11:45
PROVIDERS: ATTEND Internal Medicine Hematology & Oncology
DX: C61 Malignant neoplasm of prostate (principal); R97.21 Rising PSA following treatment for malignant neoplasm of prostate
CPT/HCPCS: 71260; 74177

== ENCOUNTER 2022-01-01 09:20 | Outpatient (RCR) | payer MEDICARE ==
[2021-12-23 11:18] LABS: BASOPHILS # (AUTO) 0.1 10^3/uL (0.0-0.1); BASOPHILS % (AUTO) 1 % (0-10); EOSINOPHILS # (AUTO) 0.2 10^3/uL (0.0-0.3); EOSINOPHILS % (AUTO) 3 % (0-10); HEMATOCRIT 38 % (40-54); HEMOGLOBIN 12.5 g/dL (13.3-17.7); LYMPHOCYTES # (AUTO) 1.9 10^3/uL (1.0-4.0); LYMPHOCYTES % (AUTO) 25 % (12-44); MEAN CORPUSCULAR HEMOGLOBIN 29 pg (25-34); MEAN CORPUSCULAR HGB CONC 33 g/dL (32-36); MEAN CORPUSCULAR VOLUME 89 fL (80-99); MEAN PLATELET VOLUME 9.8 fL (9.0-12.2); MONOCYTES # (AUTO) 0.7 10^3/uL (0.0-1.0); MONOCYTES % (AUTO) 10 % (0-12); NEUTROPHILS # (AUTO) 4.7 10^3/uL (1.8-7.8); NEUTROPHILS % (AUTO) 61 % (42-75); PLATELET COUNT 390 10^3/uL (130-400); WHITE BLOOD COUNT 7.6 10^3/uL (4.3-11.0)
[2021-12-23 11:56] LABS: ALBUMIN 4.1 GM/DL (3.2-4.5); BILIRUBIN,TOTAL 0.5 MG/DL (0.1-1.0); CALCIUM 9.3 MG/DL (8.5-10.1); CREATININE SERUM 1.44 MG/DL (0.60-1.30); POTASSIUM 4.1 MMOL/L (3.6-5.0); TOTAL PROTEIN 7.7 GM/DL (6.4-8.2)
[~2022-01-01 09:20] MED LIST changes: -CATHETER FLUSH 10 ML SYR IV PRN; -HOLD METFORMIN - RECEIVED CONTRAST 20 ML VIAL IV SCH; -IOHEXOL 350 MG/ML 100 ML (OMNIPAQUE 350) VIAL IV ONE; -NS 100 ML (IVPB) BAG IV ONE
== END 2022-01-05 | disposition home or self-care (01) ==
LOC: ONC 09:20
PROVIDERS: ATTEND Internal Medicine Hematology & Oncology
DX: C61 Malignant neoplasm of prostate (principal); E78.00 Pure hypercholesterolemia, unspecified; E11.9 Type 2 diabetes mellitus without complications; D64.9 Anemia, unspecified
CPT/HCPCS: 36415; 80053; 84153; 84403; 85025; 99213

== ENCOUNTER 2022-01-06 09:47 | Outpatient (RCR) | payer MEDICARE ==
[~2022-01-06 09:47] MED LIST changes: +DENOSUMAB 120 MG/1.7 ML (XGEVA) SQ SCH
== END 2022-02-04 | disposition home or self-care (01) ==
LOC: ONC 09:47
PROVIDERS: ATTEND Internal Medicine Hematology & Oncology
DX: C61 Malignant neoplasm of prostate (principal); E78.00 Pure hypercholesterolemia, unspecified; E11.9 Type 2 diabetes mellitus without complications; D64.9 Anemia, unspecified
CPT/HCPCS: 96372

== ENCOUNTER → 2022-03-17 | Outpatient (CLI) | payer MEDICARE ==
[~2022-03-17] MED LIST changes: -DENOSUMAB 120 MG/1.7 ML (XGEVA) SQ SCH
--- NOTE | 2022-03-17 15:20 | Diagnostic Imaging Report ---
INDICATION: Right hip pain. COMPARISON: CT dated 12/23/2021. TECHNIQUE: Two radiographs of the right hip dated 03/17/2022. FINDINGS: Multiple sclerotic osseous lesions are again identified. This includes within the lateral right femoral neck as well as within the right iliac bone and right acetabular roof. An additional round lesion is noted within the right inferior pubic ramus. These lesions appear relatively stable compared to the prior CT examination when accounting for differences in modality. No acute fracture or dislocation. No destructive lytic process. Minimal degenerative changes within the right hip. No collapse of the right femoral head. Minimal background vascular calcifications. No acute osseous abnormality. IMPRESSION: Findings consistent with advanced sclerotic osseous metastatic disease, appearing similar to the prior CT. No acute fracture with low-grade degenerative changes present. Dictated by: Dictated on workstation # [id number]
== END ==
LOC: ORTHO 09:10
PROVIDERS: ATTEND Orthopaedic Surgery
DX: M25.551 Pain in right hip (principal)
CPT/HCPCS: 73502; G0463; 99203

== ENCOUNTER 2022-03-30 10:32 | Outpatient (RCR) | payer MEDICARE ==
[2022-03-27 10:41] LABS: BASOPHILS # (AUTO) 0.1 10^3/uL (0.0-0.1); BASOPHILS % (AUTO) 1 % (0-10); EOSINOPHILS # (AUTO) 0.3 10^3/uL (0.0-0.3); EOSINOPHILS % (AUTO) 3 % (0-10); HEMATOCRIT 36 % (40-54); HEMOGLOBIN 11.5 g/dL (13.3-17.7); LYMPHOCYTES % (AUTO) 24 % (12-44); MEAN CORPUSCULAR HEMOGLOBIN 28 pg (25-34); MEAN CORPUSCULAR HGB CONC 32 g/dL (32-36); MEAN CORPUSCULAR VOLUME 87 fL (80-99); MEAN PLATELET VOLUME 10.2 fL (9.0-12.2); MONOCYTES # (AUTO) 0.9 10^3/uL (0.0-1.0); MONOCYTES % (AUTO) 12 % (0-12); NEUTROPHILS # (AUTO) 4.8 10^3/uL (1.8-7.8); NEUTROPHILS % (AUTO) 59 % (42-75); PLATELET COUNT 350 10^3/uL (130-400); WHITE BLOOD COUNT 8.1 10^3/uL (4.3-11.0)
[2022-03-27 10:59] LABS: BILIRUBIN,TOTAL 0.6 MG/DL (0.1-1.0); CALCIUM 8.8 MG/DL (8.5-10.1); CREATININE SERUM 1.37 MG/DL (0.60-1.30); POTASSIUM 3.7 MMOL/L (3.6-5.0); TOTAL PROTEIN 7.4 GM/DL (6.4-8.2)
[~2022-03-30 10:32] MED LIST changes: +DENOSUMAB 120 MG/1.7 ML (XGEVA) SQ SCH
== END 2022-04-07 | disposition home or self-care (01) ==
LOC: ONC 10:32
PROVIDERS: ATTEND Internal Medicine Hematology & Oncology
DX: C61 Malignant neoplasm of prostate (principal); C79.51 Secondary malignant neoplasm of bone; E78.00 Pure hypercholesterolemia, unspecified; E11.9 Type 2 diabetes mellitus without complications; D64.9 Anemia, unspecified; Z90.79 Acquired absence of other genital organ(s)
CPT/HCPCS: 36415; 80053; 84153; 84403; 85025; 99213

== ENCOUNTER 2022-04-15 08:53 | Outpatient (RCR) | payer MEDICARE ==
[~2022-04-15 08:53] MED LIST changes: +LEUPROLIDE 22.5 MG SYRINGE (ELIGARD) SQ SCH
== END 2022-05-05 | disposition home or self-care (01) ==
LOC: ONC 08:53
PROVIDERS: ATTEND Internal Medicine Hematology & Oncology
DX: C61 Malignant neoplasm of prostate (principal); C79.51 Secondary malignant neoplasm of bone; E78.00 Pure hypercholesterolemia, unspecified; E11.9 Type 2 diabetes mellitus without complications; D64.9 Anemia, unspecified; Z90.79 Acquired absence of other genital organ(s)
CPT/HCPCS: 96372; 96402

== ENCOUNTER 2022-05-18 15:43 | Emergency (ER) | payer MEDICARE ==
[~2022-05-18] VITALS: Ht 182 cm; Wt 72.5 kg
[~2022-05-18 15:43] MED LIST changes: -DENOSUMAB 120 MG/1.7 ML (XGEVA) SQ SCH; -LEUPROLIDE 22.5 MG SYRINGE (ELIGARD) SQ SCH
--- NOTE | 2022-05-18 16:13 | ED Lower Extremity ---
General Chief Complaint: Lower Extremity Stated Complaint: LEG PAIN Source: patient Exam Limitations: no limitations History of Present Illness Date Seen by Provider: May 18, 2022 Time Seen by Provider: 16:10 Initial Comments Patient is a 81-year-old male with a history of prostate cancer with prostatectomy and bone metastasis who presents ED with low back pain, pelvic pain bilateral anterior thigh pain. The patient states pain has been ongoing for the past 2 weeks. Pain has been constant. Has been taken Tylenol without much improvement. Pain is described as sharp. Does have chronic numbness and tingling below his knees bilateral with a history of dropfoot, CMT. Does wear braces but not currently. Denies taking medication for neuropathy. Patient is currently following up with oncology Dr. becker. Patient states he took a hydrocod one from his today with some improvement in the pain. He is able to ambulate with a cane. Patient had a PET scan on 08/2021 that was overall unremarkable from previous PET scan but did note several bony lesions. Denies of any urinary symptoms, bowel incontinent. Does have history of constipation currently takes laxatives. Denies fever, abdominal pain, chest pain, shortness of breath, nausea, vomit, diarrhea, patient denies of any skin color changes, swelling bruising or redness of the leg Allergies and Home Medications Allergies Coded Allergies: No Known Drug Allergies (Unverified , 09/09/09) Patient Home Medication List Home Medication List Reviewed: Yes Canagliflozin (Invokana) 100 Mg Tablet, 100 MG PO DAILY, (Reported) Entered as Reported by: ABHILASH ARROYO on 06/29/19 0836 Glimepiride (Glimepiride) 2 Mg Tablet, 2 MG PO DAILY, (Reported) Entered as Reported by: CIERA STUART on 08/07/10 1053 Hydrocodone/Acetaminophen (Hydrocodone-Acetamin 5-325 mg) 5 Mg-325 Mg Tablet, 1 TAB PO Q4H PRN for PAIN-MODERATE (5-7) Prescribed by: LIONEL MCQUEEN on 05/18/22 1817 Lisinopril (Lisinopril) 10 Mg Tablet, 10 MG PO DAILY, (Reported) Entered as Reported by: ABHILASH ARROYO on 06/29/19 0836 Lovastatin (Lovastatin 20 Mg) 20 Mg Tablet, 1 EACH PO DAILY WITH SUPPER, (Reported) Entered as Reported by: CORNELIA CARTAGENA on 09/09/092104 Metformin Hcl (Metformin 500 Mg) 500 Mg Tablet, 1,000 MG PO BID WITH MEALS, (Reported) Entered as Reported by: CORNELIA CARTAGENA on 09/09/092104 Tramadol HCl (Ultram) 50 Mg Tablet, 50 MG PO Q6H Prescribed by: REJI LYNN on 06/20/192030 Review of Systems Constitutional: No chills, No diaphoresis, No malaise, No weakness EENTM: No blurred vision, No double vision Respiratory: No cough, No dyspnea on exertion Cardiovascular: No chest pain Gastrointestinal: No abdominal pain, No diarrhea, No nausea, No vomiting Genitourinary: No decreased output, No discharge Musculoskeletal: No back pain; joint pain, muscle pain Skin: No change in color, No change in hair/nails All Other Systems Reviewed Negative Unless Noted: Yes Past Rgmkjtk-[id number]-Oixycq Hx Seasonal Allergies Seasonal Allergies: No Past Medical History Surgeries: Yes (HERNIA REPAIR, SHOULDER REPAIR) Prostatectomy Respiratory: No Cardiac: Yes High Cholesterol, Hypertension Neurological: Yes Neuropathy Reproductive Disorders: No Sexually Transmitted Disease: No Genitourinary: Yes Gastrointestinal: No Endocrine: Yes Diabetes, Non-Insulin dep Psychosocial: No Blood Disorders: No Physical Exam Vital Signs Vital Signs - First Documented 05/18/22 05/18/22 16:09 18:23 Temp 36.0 Pulse 85 Resp 16 B/P (MAP) 122/70 (87) Pulse Ox 96 O2 Delivery Room Air Capillary Refill : Height, Weight, BMI Height: '" Weight: lbs. oz. kg; 21.00 BMI Method: General Appearance: WD/WN, no apparent distress HEENT: PERRL/EOMI, normal ENT inspection, TMs normal, pharynx normal Neck: non-tender, full range of motion, supple, normal inspection Cardiovascular: regular rate, rhythm, no edema, no gallop, no JVD, no murmur Respiratory: chest non-tender, lungs clear, normal breath sounds, no respiratory distress, no accessory muscle use Gastrointestinal: normal bowel sounds, non tender, soft, no organomegaly Back: normal inspection, no CVA tenderness, no vertebral tenderness Hips: bilateral hip non-tender, bilateral hip normal inspection, bilateral hip no evidence of injury Legs: bilateral leg non-tender, bilateral leg normal inspection, bilateral leg normal range of motion Knees: bilateral knee non-tender, bilateral knee normal inspection, bilateral knee normal range of motion 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, no motor/sensory deficits, alert, normal mood/affect, oriented x 3 Skin: normal color, warm/dry Progress/Results/Core Measures Results/Orders Lab Results Laboratory Tests Test 05/18/22 17:03 Range/Units White Blood Count 9.8 4.3-11.0 10^3/uL Red Blood Count 3.57 L 4.30-5.52 10^6/uL Hemoglobin 9.6 L 13.3-17.7 g/dL Hematocrit 30 L 40-54 % Mean Corpuscular Volume 85 80-99 fL Mean Corpuscular Hemoglobin 27 25-34 pg Mean Corpuscular Hemoglobin Concent 32 32-36 g/dL Red Cell Distribution Width 14.6 H 10.0-14.5 % Platelet Count 303 130-400 10^3/uL Mean Platelet Volume 9.9 9.0-12.2 fL Immature Granulocyte % (Auto) 1 % Neutrophils (%) (Auto) 70 42-75 % Lymphocytes (%) (Auto) 15 12-44 % Monocytes (%) (Auto) 12 0-12 % Eosinophils (%) (Auto) 1 0-10 % Basophils (%) (Auto) 1 0-10 % Neutrophils # (Auto) 6.9 1.8-7.8 10^3/uL Lymphocytes # (Auto) 1.5 1.0-4.0 10^3/uL Monocytes # (Auto) 1.2 H 0.0-1.0 10^3/uL Eosinophils # (Auto) 0.1 0.0-0.3 10^3/uL Basophils # (Auto) 0.1 0.0-0.1 10^3/uL Immature Granulocyte # (Auto) 0.1 0.0-0.1 10^3/uL Sodium Level 133 L 135-145 MMOL/L Potassium Level 3.7 3.6-5.0 MMOL/L Chloride Level 106 98-107 MMOL/L Carbon Dioxide Level 15 L 21-32 MMOL/L Anion Gap 12 5-14 MMOL/L Blood Urea Nitrogen 32 H 7-18 MG/DL Creatinine 1.39 H 0.60-1.30 MG/DL Estimat Glomerular Filtration Rate 51 BUN/Creatinine Ratio 23 Glucose Level 144 H 70-105 MG/DL Calcium Level 8.2 L 8.5-10.1 MG/DL Corrected Calcium 8.4 L 8.5-10.1 MG/DL Total Bilirubin 0.4 0.1-1.0 MG/DL Aspartate Amino Transf (AST/SGOT) 26 5-34 U/L Alanine Aminotransferase (ALT/SGPT) 16 0-55 U/L Alkaline Phosphatase 321 H 40-136 U/L Total Protein 6.9 6.4-8.2 GM/DL Albumin 3.7 3.2-4.5 GM/DL My Orders Orders - ARTHUR SWARTZ Ct Lumbar Spine Wo (05/18/22 16:07) Ct Pelvis Wo (05/18/22 16:07) Femur, Bilateral, 2 Views (05/18/22 16:07) Cbc With Automated Diff (05/18/22 16:07) Comprehensive Metabolic Panel (05/18/22 16:07) Vital Signs/I&O 05/18/22 05/18/22 16:09 18:23 Temp 36.0 36.0 Pulse 85 85 Resp 16 16 B/P (MAP) 122/70 (87) 122/70 Pulse Ox 96 96 O2 Delivery Room Air Departure Communication (PCP) Reviewed previous ER visits, H&P's, heme-onc reports. History of prostate cancer with metastasis to the bone. Patient had a stable PET scan performed on 08/11/2021. Did note numerous axial skeletal lesions. Patient today complaining of pain bilateral thigh anterior over the past 2 weeks. Pain became worse this evening took hydrocodone from his with improvement. Patient states he has no current pain. 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 Not currently wearing a brace. Patient has been having some mild lower back pain and pelvic pain over the past few days. Patient is having more pain located mid femur versus the lower back. Differential diagnosis of bone metastasis, muscle pain, neuropathy. He had no swelling or bruising of the leg suggesting DVT. All discomfort is anterior thigh and not along the posterior deep venous system. Patient denies of any injury. No current tenderness on palpation. No bruising or swelling or redness. He is not currently on chemotherapy secondary to chronic kidney disease. Follows up with Dr. Jesika santos-onc. Scheduled for follow-up July 13. Lab work was ordered CBC and CMP. Creatinine of 1.39 GFR 51: chronic and stable. normal white blood count. Hemoglobin 9.6 stable but slightly lower from previous lab work on 03/27/2022 (11.5). Sodium 133 today. Tolerating p.o. fluids. Denies of any vomiting or diarrhea, dark tarry stool. Denies of any urinary symptoms. Due to location of pain worried about worsen bone metastasis. Imaging was ordered to rule out pathological fracture. CT lumbar and pelvic shows a progressive worsening bone lesions since previous CT scan in December 2021 without acute fracture. Degenerative changes noted through the lumbar spine. Bilateral femur x-rays were negative for acute fracture but did note extensive bone metastasis. Concerning that the pain is neuropathy versus bone pain. Patient is currently pain-free. Discussed drinking Pedialyte to help replenish the sodium. We will prescribe a few days worth of pain medication. Attempted to call Dr. BECKER but did not receive a call back. Patient and family were requesting to leave at this time. Did provide a few days worth of pain medication. Does have a cane and is able to ambulate without pain at this time. Due to no further emergent treatment at this time, recommend following up with heme-onc or primary care physician for further pain control and further evaluation of the bone lesions. Return precaution were discussed. Stable vital sign Impression Primary Impression: Bone metastases Disposition: HOME, SELF-CARE Condition: Stable Departure-Patient Inst. Decision time for Depature: 17:56 Referrals: STEVE AWAN DO (PCP/Family) Primary Care Physician ARAM BECKER MD Patient Instructions: Bone Metastases Add. Discharge Instructions: Please follow-up with Dr. Becker and or Dr. Awan. Return back to ED if pain worsen, swelling or bruising of the leg All discharge instructions reviewed with patient and/or family. Voiced understanding. Scripts Hydrocodone/Acetaminophen (Hydrocodone-Acetamin 5-325 mg) 5 Mg-325 Mg Tablet 1 TAB PO Q4H PRN for PAIN-MODERATE (5-7), #8 TAB Prov: ARTHUR SWARTZ 05/18/22 ARTHUR SWARTZ May 18, 2022 16:13
--- NOTE | 2022-05-18 16:54 | Diagnostic Imaging Report ---
PROCEDURE: CT lumbar spine without contrast. TECHNIQUE: Multiple contiguous axial images were obtained through the lumbar spine without the use of intravenous contrast. Sagittal and coronal reformations were then performed. Auto Exposure Controls were utilized during the CT exam to meet ALARA standards for radiation dose reduction. INDICATION: Back pain There is grade 2 spondylolisthesis at L4-L5 with complete loss of the disc space at that level. There is also severe narrowing of the L5-S1 disc space with vacuum disc phenomena present. There is circumferential osteophyte formation at those 2 levels. There are pars defects of L4. There is near complete sclerosis of the T12 vertebral body. The L4 vertebral body is sclerotic on the left half of the vertebral body. There are sclerotic lesions in each of the lumbar vertebral bodies as well as in the posterior elements of the lumbar spine. There are no pathologic compression fractures. IMPRESSION: Grade 2 spondylolisthesis at L4-L5 with advanced degenerative disc changes at L4-L5 and L5-S1. There are bilateral pars defects at L4. There is osteoblastic bone metastases in each lumbar vertebra and visualized portions of the sacrum. Dictated by: Dictated on workstation # [id number]
--- NOTE | 2022-05-18 17:01 | Diagnostic Imaging Report ---
EXAMINATION: Right femur, 2 views. Left femur, 2 views. A total images. COMPARISON: None. HISTORY: 81-year-old male, bilateral thigh pain. FINDINGS: There are numerous sclerotic bone lesions consistent with extensive multifocal bone metastasis. There is no identified acute fracture. There is no cortical or aggressive bone destruction. Bone metastasis includes involvement of the left proximal femur to the level of the proximal femoral diaphysis and right proximal femur to the level of at least the intertrochanteric femur. There are also bone metastasis of the pelvis. Both hip joints are well preserved. IMPRESSION: 1. Extensive multifocal bone metastasis. 2. No identified acute fracture or other acute osseous abnormality. Dictated by: Dictated on workstation # [id number]
--- NOTE | 2022-05-18 17:07 | Diagnostic Imaging Report ---
Procedure: CT pelvis without contrast. Technique: Multiple contiguous axial images were obtained through the pelvis without the use of intravenous contrast. Sagittal and coronal reformations were performed. Auto Exposure Controls were utilized during the CT exam to meet ALARA standards for radiation dose reduction. Date: May 18, 2022. Indications: 81-year-old male, pelvic pain. History of bone metastasis. Comparison: CT chest and pelvis December 23, 2021. Findings: There are numerous sclerotic lesions involving both proximal femurs as well as multiple lesions of the bones of the pelvis, sacrum, and lumbar spine. Please see separately dictated CT lumbar spine report for additional evaluation of the lumbar spine. There is no identified acute fracture. There is no identified cortical or aggressive bone destruction. There is a progression of bone metastasis since the prior exam on December 23, 2021. The hips are not dislocated. There is no pronounced joint space loss of either hip, osteophyte formation, or subchondral cystic change. The sacroiliac joints are unremarkable in appearance. There are advanced degenerative changes of the lower lumbar spine. There are atherosclerotic calcifications. There is no identified free fluid in the pelvis. Impression: 1. Extensive multifocal bone metastasis with interval progression since December 23, 2021. 2. No identified acute fracture or other acute osseous abnormality. 3. Advanced degenerative changes of the lumbar spine abnormal alignment of the lumbar spine. Please see separately dictated CT lumbar spine report for detailed evaluation of the lumbar spine. Dictated by: Dictated on workstation # [id number]
[2022-05-18 17:11] LABS: BASOPHILS # (AUTO) 0.1 10^3/uL (0.0-0.1); BASOPHILS % (AUTO) 1 % (0-10); EOSINOPHILS # (AUTO) 0.1 10^3/uL (0.0-0.3); EOSINOPHILS % (AUTO) 1 % (0-10); HEMATOCRIT 30 % (40-54); HEMOGLOBIN 9.6 g/dL (13.3-17.7); LYMPHOCYTES # (AUTO) 1.5 10^3/uL (1.0-4.0); LYMPHOCYTES % (AUTO) 15 % (12-44); MEAN CORPUSCULAR HEMOGLOBIN 27 pg (25-34); MEAN CORPUSCULAR HGB CONC 32 g/dL (32-36); MEAN CORPUSCULAR VOLUME 85 fL (80-99); MEAN PLATELET VOLUME 9.9 fL (9.0-12.2); MONOCYTES # (AUTO) 1.2 10^3/uL (0.0-1.0); MONOCYTES % (AUTO) 12 % (0-12); NEUTROPHILS # (AUTO) 6.9 10^3/uL (1.8-7.8); NEUTROPHILS % (AUTO) 70 % (42-75); PLATELET COUNT 303 10^3/uL (130-400); WHITE BLOOD COUNT 9.8 10^3/uL (4.3-11.0)
[2022-05-18 17:19] LABS: ALBUMIN 3.7 GM/DL (3.2-4.5); POTASSIUM 3.7 MMOL/L (3.6-5.0)
[2022-05-18 17:21] LABS: CALCIUM 8.2 MG/DL (8.5-10.1)
[2022-05-18 17:22] LABS: TOTAL PROTEIN 6.9 GM/DL (6.4-8.2)
[2022-05-18 17:24] LABS: BILIRUBIN,TOTAL 0.4 MG/DL (0.1-1.0)
[2022-05-18 17:25] LABS: CREATININE SERUM 1.39 MG/DL (0.60-1.30)
[2022-05-18] MEDS ORDERED: ACHD5005 PO (18:17)
[2022-05-18 18:23] VITALS: BP 122/70
== END 2022-05-18 18:23 | disposition home or self-care (01) ==
LOC: EDUNIT# 15:43 → ER 15:46
DX: M54.50 Low back pain, unspecified (principal); R10.2 Pelvic and perineal pain; M79.652 Pain in left thigh; M79.651 Pain in right thigh; C79.51 Secondary malignant neoplasm of bone
CPT/HCPCS: 36415; 72131; 72192; 80053; 85025

== ENCOUNTER → 2022-06-05 | Outpatient (RCR) | payer MEDICARE ==
[~2022-06-05] MED LIST changes: +ACHD5005 PO
== END | disposition home or self-care (01) ==
LOC: ONC 05-20 13:07
PROVIDERS: ATTEND Internal Medicine Hematology & Oncology
DX: Z51.0 Encounter for antineoplastic radiation therapy (principal); C61 Malignant neoplasm of prostate; C79.51 Secondary malignant neoplasm of bone; E78.00 Pure hypercholesterolemia, unspecified; E11.9 Type 2 diabetes mellitus without complications; D64.9 Anemia, unspecified; Z90.79 Acquired absence of other genital organ(s)
CPT/HCPCS: 77290; 77300; 77301; 77334; 77336; 77338; 77386; 99205

== ENCOUNTER 2022-06-10 10:16 | Outpatient (RCR) | payer MEDICARE ==
[2022-06-09 10:51] LABS: BASOPHILS % (AUTO) 1 % (0-10); EOSINOPHILS # (AUTO) 0.2 10^3/uL (0.0-0.3); EOSINOPHILS % (AUTO) 5 % (0-10); HEMATOCRIT 31 % (40-54); HEMOGLOBIN 10.1 g/dL (13.3-17.7); LYMPHOCYTES # (AUTO) 0.5 10^3/uL (1.0-4.0); LYMPHOCYTES % (AUTO) 11 % (12-44); MEAN CORPUSCULAR HEMOGLOBIN 27 pg (25-34); MEAN CORPUSCULAR HGB CONC 33 g/dL (32-36); MEAN CORPUSCULAR VOLUME 84 fL (80-99); MEAN PLATELET VOLUME 9.9 fL (9.0-12.2); MONOCYTES # (AUTO) 0.6 10^3/uL (0.0-1.0); MONOCYTES % (AUTO) 14 % (0-12); NEUTROPHILS % (AUTO) 68 % (42-75); PLATELET COUNT 234 10^3/uL (130-400); WHITE BLOOD COUNT 4.4 10^3/uL (4.3-11.0)
[2022-06-09 11:14] LABS: ANISOCYTOSIS SLIGHT; BAND NEUTROPHILS 0 %; BASOPHILS % (MANUAL) 0 %; ELLIPT/OVALOCYTES SLIGHT; EOSINOPHILS % (MANUAL) 7 %; LYMPHOCYTES % (MANUAL) 14 %; MONOCYTES % (MANUAL) 11 %; NEUTROPHILS % (MANUAL) 68 %
[2022-06-29] MEDS ORDERED: ACHD5005 PO (09:46)
== END 2022-07-05 | disposition home or self-care (01) ==
LOC: ONC 10:16
PROVIDERS: ATTEND Internal Medicine Hematology & Oncology
DX: Z51.0 Encounter for antineoplastic radiation therapy (principal); C61 Malignant neoplasm of prostate; C79.51 Secondary malignant neoplasm of bone; E78.00 Pure hypercholesterolemia, unspecified; E11.9 Type 2 diabetes mellitus without complications; D64.9 Anemia, unspecified; Z90.79 Acquired absence of other genital organ(s)
CPT/HCPCS: 36415; 77336; 77386; 85007; 85027

== ENCOUNTER 2022-06-29 08:35 | Emergency (ER) | payer MEDICARE ==
[~2022-06-29] VITALS: Ht 182 cm; Wt 72.5 kg
[2022-06-29] MEDS ORDERED: morphine INJ 10 MG/ML 1ML (SYR OR VIAL) IVP STA (08:43)
--- NOTE | 2022-06-29 08:46 | ED Hip Pain/Injury ---
General Chief Complaint: Hip/Pelvic Problems Stated Complaint: RT HIP PAIN Nursing Triage Note: PT WITH HX OF BONE CA TO RM 7 BY [facility] WITH CC OF RT HIP PAIN, RADIATION TX DONE, PAIN STARTED ABOUT A WEEK AGO Source: patient, EMS Exam Limitations: no limitations History of Present Illness Date Seen by Provider: Jun 29, 2022 Time Seen by Provider: 08:37 Initial Comments 81-year-old male presents to the emergency department today for right hip pain worsening over the last week. He has a remote history of prostate cancer, status post prostatectomy. He had a recurrence of his cancer more recently with metastasis to the bones and spine. He states he was having this type of pain significantly prior to a recent 10 bout treatment of radiation. After the radiation which concluded on 06/10 he had no pain whatsoever. About a week ago he was pushing some boxes around had a library books and then and he feels like he may have overdone it. He has had increasing pain since that time. No saddle anesthesia, loss of bowel or bladder control. No dysuria, hematuria fevers or chills. He has hydrocodone at home which she has taken with minimal relief. He does tell me he had some left leg swelling last week. He had an ultrasound by his primary care physician which was negative for DVT. All other systems reviewed and negative except documented per HPI. Voice recognition software was used to help create this chart Allergies and Home Medications Allergies Coded Allergies: No Known Drug Allergies (Unverified , 09/09/09) Patient Home Medication List Home Medication List Reviewed: Yes Canagliflozin (Invokana) 100 Mg Tablet, 100 MG PO DAILY, (Reported) Entered as Reported by: ABHILASH ARROYO on 06/29/19 0836 Glimepiride (Glimepiride) 2 Mg Tablet, 2 MG PO DAILY, (Reported) Entered as Reported by: CIERA STUART on 08/07/10 1053 Hydrocodone/Acetaminophen (Hydrocodone-Acetamin 5-325 mg) 5 Mg-325 Mg Tablet, 1 TAB PO Q4H PRN for PAIN-MODERATE (5-7) Prescribed by: LIONEL MCQUEEN on 05/18/22 1817 Lisinopril (Lisinopril) 10 Mg Tablet, 10 MG PO DAILY, (Reported) Entered as Reported by: ABHILASH ARROYO on 06/29/19 0836 Lovastatin (Lovastatin 20 Mg) 20 Mg Tablet, 1 EACH PO DAILY WITH SUPPER, (Reported) Entered as Reported by: CORNELIA CARTAGENA on 09/09/092104 Metformin Hcl (Metformin 500 Mg) 500 Mg Tablet, 1,000 MG PO BID WITH MEALS, (Reported) Entered as Reported by: CORNELIA CARTAGENA on 09/09/092104 Tramadol HCl (Ultram) 50 Mg Tablet, 50 MG PO Q6H Prescribed by: REJI LYNN on 06/20/192030 Review of Systems Constitutional: see HPI Past Fnuasgn-Sisoao-Vwiafi Hx Patient Social History Tobacco Use?: No Use of E-Cig and/or Vaping dev: No Substance use?: No Alcohol Use?: No Seasonal Allergies Seasonal Allergies: No Past Medical History Surgery/Hospitalization HX: pmh: prostate ca- mets Surgeries: Yes (HERNIA REPAIR, SHOULDER REPAIR) Prostatectomy Respiratory: No Cardiac: Yes High Cholesterol, Hypertension Neurological: Yes Neuropathy Reproductive Disorders: No Sexually Transmitted Disease: No Genitourinary: Yes Gastrointestinal: No Endocrine: Yes Diabetes, Non-Insulin dep Psychosocial: No Blood Disorders: No Physical Exam Vital Signs Vital Signs - First Documented 06/29/22 08:39 Temp 37.2 Pulse 82 Resp 18 B/P (MAP) 156/76 (102) Pulse Ox 100 O2 Delivery Room Air Capillary Refill : Less Than 3 Seconds Height, Weight, BMI Height: '" Weight: lbs. oz. kg; 21.00 BMI Method: General Appearance: No Apparent Distress, WD/WN HEENT: Normal ENT Inspection, Pharynx Normal Neck: Full Range of Motion, Normal Inspection, Non Tender, Supple Cardiovascular: Regular Rate, Rhythm, No Murmur Respiratory: Chest Non Tender, Lungs Clear, Normal Breath Sounds Gastrointestinal: Normal Bowel Sounds, No Organomegaly, No Pulsatile Mass, Non Tender, Soft Back: Normal Inspection, No CVA Tenderness, No Vertebral Tenderness Extremity: Other (Tenderness palpation right lateral hip, proximal thigh. Neurovascular motor and sensory intact distally.) Neurologic/Psychiatric: Alert, Oriented x3 Skin: Normal Color, Warm/Dry Progress/Results/Core Measures Results/Orders My Orders Orders - LACHELLE CARL DO Pelvis With Right Hip 2-3views (06/29/22 08:43) Morphine Injection (Morphine Injection (06/29/22 08:43) Vital Signs/I&O 06/29/22 06/29/22 08:39 08:49 Temp 37.2 37.2 Pulse 82 Resp 18 B/P (MAP) 156/76 (102) Pulse Ox 100 O2 Delivery Room Air Blood Pressure Mean: 102 Departure Communication (Admissions) Patient is hemodynamically stable no focal neurologic deficits. X-rays obtained and there is no evidence for fracture or other abnormality outside of chronic changes associated with his metastatic disease. His pain is controlled with morphine here. To be discharged with a short course of hydrocodone. Recommended stool softeners and precautions for somnolence. Discharged in stable condition with supportive care and close follow-up. Impression Primary Impression: Bone metastases Additional Impression: Right hip pain Disposition: HOME, SELF-CARE Condition: Stable Departure-Patient Inst. Referrals: STEVE MOON DO (PCP/Family) Primary Care Physician Patient Instructions: Opioids for Short-Term Treatment of Pain ED, Joint Pain Add. Discharge Instructions: Take the pain medication as prescribed as needed. You may want to take a stool softener with this as it may cause constipation. This may make you drowsy so do not drive or make important decisions while you are taking it. Increase your fluids at home, rest. Follow-up with your primary doctor for any continuing pain. Return to the emergency department for any severe concerns. All discharge instructions reviewed with patient and/or family. Voiced understanding. Scripts Hydrocodone/Acetaminophen (Hydrocodone-Acetamin 5-325 mg) 5 Mg-325 Mg Tablet 1 TAB PO Q6H PRN for PAIN-MODERATE (5-7) for 7 Days, #28 TAB Prov: LACHELLE CARL DO 06/29/22 LACHELLE CARL DO Jun 29, 2022 08:46
--- NOTE | 2022-06-29 09:23 | Diagnostic Imaging Report ---
EXAMINATION: Pelvis and right hip radiographs. EXAM DATE: 06/29/2022 9:14 AM. COMPARISON: 05/18/2022. HISTORY: R hip pain, h/o prostate Ca with mets, recent radiation. TECHNIQUE: 3 views. FINDINGS: There is no acute fracture, dislocation, or destructive osseous process. The joint spaces are normal. The soft tissues are normal. Scattered areas of ill-defined sclerosis throughout the visualized pelvis and hips are unchanged from the prior exam. IMPRESSION: 1. No acute osseous abnormality. 2. Stable scattered sclerotic appearance of the osseous structures, likely related to osseous metastatic prostate cancer. Dictated by: Dictated on workstation # [id number]
[2022-06-29] MEDS ORDERED: ACHD5005 PO (09:46)
[2022-06-29 09:56] VITALS: BP 131/72
== END 2022-06-29 09:56 | disposition home or self-care (01) ==
LOC: EDUNIT# 08:35 → ER 08:37
DX: C79.51 Secondary malignant neoplasm of bone (principal); Z85.46 Personal history of malignant neoplasm of prostate; Z90.79 Acquired absence of other genital organ(s)